=== PATIENT | male | born 1980 | race American Indian/Alaskan Native ===

== ENCOUNTER 2019-03-19 06:20 | Emergency (ER) | payer SELFPAY ==
--- NOTE | 2019-03-19 10:36 | Emergency Department Report ---
Abscess Boil HPI - HPI Chief Complaint: Skin/Abscess/Foreign Body Stated Complaint: BOIL RIGHT SIDE OF NECK Time Seen by Provider: 03/19/19 09:38 Duration: 2 Days Location: Head Severity: Moderate History: Yes Pain, Yes Previous History, No Fever, No Purulent Drainage, No Numbness, No Foreign Body, No Insect Bite HPI: 39-year-old male male presents to ED complaining of swelling and redness to the back of his lower head. He denies fevers/chills/nausea vomiting. Patient states he's had this before and had to have it drained. Home Medications: Previous Rx's Medication Instructions Recorded Last Taken Type HYDROcodone/APAP 5-325 [[place] 1 each PO Q6HR PRN #20 tablet 11/15/13 Unknown Rx 5/325] Clindamycin [Clindamycin CAP] 300 mg PO TID #15 cap 03/19/19 Unknown Rx Ibuprofen [Motrin] 800 mg PO Q8HR #20 tablet 03/19/19 Unknown Rx Sulfamethoxazole/Trimethoprim 1 each PO BID #14 tablet 03/19/19 Unknown Rx [Bactrim DS TAB] Allergies/Adverse Reactions: Allergies Allergy/AdvReac Type Severity Reaction Status Date / Time Penicillins Allergy Unknown Verified 11/15/13 18:28 ED Review of Systems ROS: Stated complaint: BOIL RIGHT SIDE OF NECK Other details as noted in HPI Comment: All other systems reviewed and negative ED Past Medical Hx - Past Medical History Previous Medical History?: No - Surgical History Past Surgical History?: No - Social History Smoking Status: Current Every Day Smoker Substance Use Type: Marijuana - Medications Home Medications: Home Medications Medication Instructions Recorded Confirmed Last Taken Type HYDROcodone/APAP 5-325 [[place] 1 each PO Q6HR PRN #20 tablet 11/15/13 Unknown Rx 5/325] Clindamycin [Clindamycin CAP] 300 mg PO TID #15 cap 03/19/19 Unknown Rx Ibuprofen [Motrin] 800 mg PO Q8HR #20 tablet 03/19/19 Unknown Rx Sulfamethoxazole/Trimethoprim 1 each PO BID #14 tablet 03/19/19 Unknown Rx [Bactrim DS TAB] ED Abscess Boil Physical Exam - Exam General: Vital signs noted. No distress. Alert and acting appropriately. Size: >5 cm Exam: Yes Tenderness, Yes Fluctuance, Yes Surrounding Cellulites/Erythema, Yes Normal Neurologic Exam, Yes Normal Circulation, No Lymphangitis, No Crepitation, No Heart Murmur Exam: Erythematous, cellulitic swelling to the back of the neck I & D Note - I & D Note I & D Note: Patient positioned appropriately, 5cc lidocaine without epinephrine was used as a local anesthetic. #11 blade scalpal used for single incision. Additional local anesthetic injected into surrounding viable tissue prior to blunt dissection of loculated adhesions. Copius drainage of pus (culture obtained). Wound packed with iodoform gauze. Procedure tolerated without complications. Wound dressed with sterile 4x4 guaze and paper tape. Pt tolerated procedure well. ED Course Vital Signs 03/19/19 06:25 Temperature 98.6 F Pulse Rate 92 H Respiratory 18 Rate Blood Pressure 159/104 O2 Sat by Pulse 97 Oximetry Critical care attestation.: If time is entered above; I have spent that time in minutes in the direct care of this critically ill patient, excluding procedure time. ED Medical Decision Making - Medical Decision Making 39-year-old male presents with abscess of the back of his neck Pt tolerated procedure without any problems, see I&D. Discussed the patient to follow-up with primary care physician for wound check in 3-5 days. Vital signs are normal patient is in no acute distress Discussed the patient to have packing removed in 3 days. Patient tolerated procedure well. Patient sent home with antibiotics and pain medication. ED Disposition Clinical Impression: Abscess Disposition: DC-01 TO HOME OR SELFCARE Is pt being admited?: No Does the pt Need Aspirin: No Condition: Stable Instructions: Abscess Incision and Drainage (ED), Abscess (ED) Additional Instructions: Make sure to follow up with the primary care physician as discussed. Take all your medications as you've been prescribed. If you have any worsening symptoms or develop new symptoms please return to ED immediately. Prescriptions: Sulfamethoxazole/Trimethoprim [Bactrim DS TAB] 1 each PO BID #14 tablet Clindamycin [Clindamycin CAP] 300 mg PO TID #15 cap Ibuprofen [Motrin] 800 mg PO Q8HR #20 tablet Referrals: PRIMARY CARE, [Primary Care Provider] - 3-5 Days [facility] [Outside] - 3-5 Days [facility] [Outside] - 3-5 Days Forms: Work/School Release Form(ED) Time of Disposition: 10:48
[2019-03-19] MEDS ORDERED: LIDOCAINE (1%) 10 MG/1 ML VIAL 20 ML MDV INFILTRATI NR (10:45)
[2019-03-19] MEDS ORDERED: LET TOPICAL (LIDOCAINE/EPINEPHRINE/TETRACAINE) 3 ML TP ONE ×2 (11:01→11:04)
[2019-03-19] MEDS ORDERED: LIDOCAINE-MPF (1%) 10 MG/1 ML VIAL 5 ML INFILTRATI ONE (11:01)
[2019-03-19] MEDS ORDERED: LIDOCAINE-MPF (1%) 10 MG/1 ML VIAL 5 ML ONE (11:04)
[2019-03-19 12:19] VITALS: BP 143/92
== END 2019-03-19 12:17 | disposition home or self-care (01) ==
LOC: ED 06:20
DX: L02.11 Cutaneous abscess of neck (principal); F17.200 Nicotine dependence, unspecified, uncomplicated; F12.10 Cannabis abuse, uncomplicated; Z79.899 Other long term (current) drug therapy; Z88.0 Allergy status to penicillin
CPT/HCPCS: 99282

== ENCOUNTER 2020-01-02 03:58 | Emergency (ER) | payer SELFPAY | END 2020-01-02 04:45 | disposition left against medical advice (07) | LOC: ED 03:58 | DX: S61.218A Laceration without foreign body of other finger without damage to nail, initial encounter (principal); Z53.21 Procedure and treatment not carried out due to patient leaving prior to being seen by health care provider; X58.XXXA Exposure to other specified factors, initial encounter; Y93.89 Activity, other specified; Y92.89 Other specified places as the place of occurrence of the external cause; Y99.8 Other external cause status ==

== ENCOUNTER 2020-06-24 15:58 | Inpatient (IN) | payer OTHER, SELFPAY ==
[2020-06-24] MEDS ORDERED: SODIUM CHLORIDE 0.9% 1000 ML 1,000 ML IV ONE ×2 (16:51→18:53)
--- NOTE | 2020-06-24 17:06 | Emergency Department Report ---
ED General Adult HPI - General Chief complaint: Nausea/Vomiting/Diarrhea Stated complaint: FEELING FAINT Time Seen by Provider: 06/24/20 16:41 Source: patient, EMS Mode of arrival: Stretcher Limitations: No Limitations - History of Present Illness Initial comments: Patient presents to the emergency department with a chief complaint not feeling well for the last 2 days. Patient states he was at work and was having hot and cold spells and felt like he was in a pass out. Patient also complains of sinus congestion has been present for the last 2 weeks. Patient states he has a history of plaque psoriasis and is currently on a medication that he injects every 2 weeks because Cimzia. Patient denies any chest pain, shortness breath, headache -: Sudden Severity scale (0 -10): 7 Consistency: constant Improves with: none Worsens with: none Associated Symptoms: denies other symptoms Treatments Prior to Arrival: none - Related Data Previous Rx's Medication Instructions Recorded Last Taken Type HYDROcodone/APAP 5-325 [[place] 1 each PO Q6HR PRN #20 tablet 11/15/13 Unknown Rx 5/325] Clindamycin [Clindamycin CAP] 300 mg PO TID #15 cap 03/19/19 Unknown Rx Ibuprofen [Motrin] 800 mg PO Q8HR #20 tablet 03/19/19 Unknown Rx Sulfamethoxazole/Trimethoprim 1 each PO BID #14 tablet 03/19/19 Unknown Rx [Bactrim DS TAB] Allergies Allergy/AdvReac Type Severity Reaction Status Date / Time Penicillins Allergy Unknown Verified 11/15/13 18:28 ED Review of Systems ROS: Stated complaint: FEELING FAINT Other details as noted in HPI Comment: All other systems reviewed and negative Constitutional: denies: chills, fever Eyes: denies: eye pain, eye discharge, vision change ENT: denies: ear pain, throat pain Respiratory: denies: cough, shortness of breath, wheezing Cardiovascular: denies: chest pain, palpitations Endocrine: no symptoms reported Gastrointestinal: denies: abdominal pain, nausea, diarrhea Genitourinary: denies: urgency, dysuria Musculoskeletal: denies: back pain, joint swelling, arthralgia Skin: denies: rash, lesions Neurological: weakness. denies: headache, paresthesias Psychiatric: denies: anxiety, depression Hematological/Lymphatic: denies: easy bleeding, easy bruising ED Past Medical Hx - Past Medical History Hx Diabetes: Yes - Surgical History Past Surgical History?: No - Social History Smoking Status: Current Every Day Smoker - Medications Home Medications: Home Medications Medication Instructions Recorded Confirmed Last Taken Type HYDROcodone/APAP 5-325 [[place] 1 each PO Q6HR PRN #20 tablet 11/15/13 Unknown Rx 5/325] Clindamycin [Clindamycin CAP] 300 mg PO TID #15 cap 03/19/19 Unknown Rx Ibuprofen [Motrin] 800 mg PO Q8HR #20 tablet 03/19/19 Unknown Rx Sulfamethoxazole/Trimethoprim 1 each PO BID #14 tablet 03/19/19 Unknown Rx [Bactrim DS TAB] ED Physical Exam - General Limitations: No Limitations General appearance: alert, in no apparent distress, other (Ill-appearing but not in acute distress. Not toxic) - Head Head exam: Present: atraumatic, normocephalic - Eye Eye exam: Present: normal appearance - ENT ENT exam: Present: mucous membranes moist - Neck Neck exam: Present: normal inspection - Respiratory Respiratory exam: Present: normal lung sounds bilaterally. Absent: respiratory distress - Cardiovascular Cardiovascular Exam: Present: regular rate, normal rhythm. Absent: systolic murmur, diastolic murmur, rubs, gallop - GI/Abdominal GI/Abdominal exam: Present: soft, normal bowel sounds. Absent: distended, tenderness - Rectal Rectal exam: Present: deferred - Extremities Exam Extremities exam: Present: normal inspection - Back Exam Back exam: Present: normal inspection - Neurological Exam Neurological exam: Present: alert, oriented X3, CN II-XII intact. Absent: motor sensory deficit - Psychiatric Psychiatric exam: Present: normal affect, normal mood - Skin Skin exam: Present: warm, dry, intact, normal color. Absent: rash ED Course Vital Signs 06/24/20 16:55 Temperature 99.3 F Pulse Rate 86 Respiratory 18 Rate Blood Pressure 160/88 [Left] O2 Sat by Pulse 96 Oximetry ED Medical Decision Making - Lab Data Result diagrams: 06/24/20 17:02 06/24/20 17:02 Lab Results 06/24/20 06/24/20 06/24/20 Range/Units 17:02 17:02 17:02 WBC 24.6 H (4.5-11.0) K/mm3 RBC 5.36 H (3.65-5.03) M/mm3 Hgb 17.4 H (11.8-15.2) gm/dl Hct 52.3 H (35.5-45.6) % MCV 98 H (84-94) fl MCH 32 (28-32) pg MCHC 33 (32-34) % RDW 13.4 (13.2-15.2) % Plt Count 245 (140-440) K/mm3 Add Manual Diff Complete Total Counted 100 Seg Neutrophils % House Superintendent Lymphocytes % (Manual) 4.0 L (13.4-35.0) % Nucleated RBC % Not Reportable Seg Neutrophils # Man 23.6 H (1.8-7.7) K/mm3 Band Neutrophils # 0.0 K/mm3 Lymphocytes # (Manual) 1.0 L (1.2-5.4) K/mm3 Abs React Lymphs (Man) 0.0 K/mm3 Monocytes # (Manual) 0.0 (0.0-0.8) K/mm3 Eosinophils # (Manual) 0.0 (0.0-0.4) K/mm3 Basophils # (Manual) 0.0 (0.0-0.1) K/mm3 Metamyelocytes # 0.0 K/mm3 Myelocytes # 0.0 K/mm3 Promyelocytes # 0.0 K/mm3 Blast Cells # 0.0 K/mm3 WBC Morphology Not Reportable Hypersegmented Neuts Not Reportable Hyposegmented Neuts Not Reportable Hypogranular Neuts Not Reportable Smudge Cells Not Reportable Toxic Granulation Not Reportable Toxic Vacuolation Not Reportable Dohle Bodies Not Reportable Pelger-Huet Anomaly Not Reportable Mika Rods Not Reportable Platelet Estimate Not Reportable Clumped Platelets Not Reportable Plt Clumps, EDTA Not Reportable Large Platelets Not Reportable Giant Platelets Not Reportable Platelet Satelliting Not Reportable Plt Morphology Comment Not Reportable RBC Morphology Normal Dimorphic RBCs Not Reportable Polychromasia Not Reportable Hypochromasia Not Reportable Poikilocytosis Not Reportable Anisocytosis Not Reportable Microcytosis Not Reportable Macrocytosis Not Reportable Spherocytes Not Reportable Pappenheimer Bodies Not Reportable Sickle Cells Not Reportable Target Cells Not Reportable Tear Drop Cells Not Reportable Ovalocytes Not Reportable Helmet Cells Not Reportable [place] Bodies Not Reportable [place] Rings Not Reportable [place] Cells Not Reportable Bite Cells Not Reportable Crenated Cell Not Reportable Elliptocytes Not Reportable Acanthocytes (Spur) Not Reportable Rouleaux Not Reportable Hemoglobin C Crystals Not Reportable Schistocytes Not Reportable Malaria parasites Not Reportable Juan A Bodies Not Reportable Hem Pathologist Commnt No PT 13.5 (12.2-14.9) Sec. INR 1.04 (0.87-1.13) APTT 23.0 L (24.2-36.6) Sec. Sodium 131 L (137-145) mmol/L Potassium 4.4 (3.6-5.0) mmol/L Chloride 97.2 L (98-107) mmol/L Carbon Dioxide 22 (22-30) mmol/L Anion Gap 16 mmol/L BUN 20 (9-20) mg/dL Creatinine 0.9 (0.8-1.3) mg/dL Estimated GFR > 60 ml/min BUN/Creatinine Ratio 22 % Glucose 366 H (75-100) mg/dL Lactic Acid (0.7-2.0) mmol/L Calcium 9.2 (8.4-10.2) mg/dL Magnesium 1.50 L (1.7-2.3) mg/dL Total Bilirubin 0.50 (0.1-1.2) mg/dL AST 13 (5-40) units/L ALT 23 (7-56) units/L Alkaline Phosphatase 110 (35-129) units/L Total Protein 7.5 (6.3-8.2) g/dL Albumin 3.6 L (3.9-5) g/dL Albumin/Globulin Ratio 0.9 % Urine Color (Yellow) Urine Turbidity (Clear) Urine pH (5.0-7.0) Ur Specific [place] (1.003-1.030) Urine Protein (Negative) mg/dL Urine Glucose (UA) (Negative) mg/dL Urine Ketones (Negative) mg/dL Urine Blood (Negative) Urine Nitrite (Negative) Urine Bilirubin (Negative) Urine Urobilinogen (<2.0) mg/dL Ur Leukocyte Esterase (Negative) Urine WBC (Auto) (0.0-6.0) /HPF Urine RBC (Auto) (0.0-6.0) /HPF Urine Mucus /HPF 06/24/20 06/24/20 Range/Units 17:02 Unknown WBC (4.5-11.0) K/mm3 RBC (3.65-5.03) M/mm3 Hgb (11.8-15.2) gm/dl Hct (35.5-45.6) % MCV (84-94) fl MCH (28-32) pg MCHC (32-34) % RDW (13.2-15.2) % Plt Count (140-440) K/mm3 Add Manual Diff Total Counted Seg Neutrophils % Lymphocytes % (Manual) (13.4-35.0) % Nucleated RBC % Seg Neutrophils # Man (1.8-7.7) K/mm3 Band Neutrophils # K/mm3 Lymphocytes # (Manual) (1.2-5.4) K/mm3 Abs React Lymphs (Man) K/mm3 Monocytes # (Manual) (0.0-0.8) K/mm3 Eosinophils # (Manual) (0.0-0.4) K/mm3 Basophils # (Manual) (0.0-0.1) K/mm3 Metamyelocytes # K/mm3 Myelocytes # K/mm3 Promyelocytes # K/mm3 Blast Cells # K/mm3 WBC Morphology Hypersegmented Neuts Hyposegmented Neuts Hypogranular Neuts Smudge Cells Toxic Granulation Toxic Vacuolation Dohle Bodies Pelger-Huet Anomaly Mika Rods Platelet Estimate Clumped Platelets Plt Clumps, EDTA Large Platelets Giant Platelets Platelet Satelliting Plt Morphology Comment RBC Morphology Dimorphic RBCs Polychromasia Hypochromasia Poikilocytosis Anisocytosis Microcytosis Macrocytosis Spherocytes Pappenheimer Bodies Sickle Cells Target Cells Tear Drop Cells Ovalocytes Helmet Cells [place] Bodies [place] Rings Augie Cells Bite Cells Crenated Cell Elliptocytes Acanthocytes (Spur) Rouleaux Hemoglobin C Crystals Schistocytes Malaria parasites Juan A Bodies Hem Pathologist Commnt PT (12.2-14.9) Sec. INR (0.87-1.13) APTT (24.2-36.6) Sec. Sodium (137-145) mmol/L Potassium (3.6-5.0) mmol/L Chloride (98-107) mmol/L Carbon Dioxide (22-30) mmol/L Anion Gap mmol/L BUN (9-20) mg/dL Creatinine (0.8-1.3) mg/dL Estimated GFR ml/min BUN/Creatinine Ratio % Glucose (75-100) mg/dL Lactic Acid 2.50 H* (0.7-2.0) mmol/L Calcium (8.4-10.2) mg/dL Magnesium (1.7-2.3) mg/dL Total Bilirubin (0.1-1.2) mg/dL AST (5-40) units/L ALT (7-56) units/L Alkaline Phosphatase (35-129) units/L Total Protein (6.3-8.2) g/dL Albumin (3.9-5) g/dL Albumin/Globulin Ratio % Urine Color Yellow (Yellow) Urine Turbidity Clear (Clear) Urine pH 6.0 (5.0-7.0) Ur Specific [place] 1.035 H (1.003-1.030) Urine Protein <15 mg/dl (Negative) mg/dL Urine Glucose (UA) >=500 (Negative) mg/dL Urine Ketones Tr (Negative) mg/dL Urine Blood Neg (Negative) Urine Nitrite Neg (Negative) Urine Bilirubin Neg (Negative) Urine Urobilinogen < 2.0 (<2.0) mg/dL Ur Leukocyte Esterase Neg (Negative) Urine WBC (Auto) < 1.0 (0.0-6.0) /HPF Urine RBC (Auto) 3.0 (0.0-6.0) /HPF Urine Mucus Few /HPF - Medical Decision Making On repeat evaluation of the patient at approximately 7:20 PM informs myself and Dr. Gallego that he recently had steroid shots locally to multiple parts of his body as well as development of abscesses to his buttocks. Patient also states that he has had abscesses under his left arm as well. On physical exam the patient has multiple fluctuant abscesses to the buttocks and axilla left side. CT of the abdomen pelvis will be obtained and will be followed by the admitting team IV fluids and IV antibiotics given Critical care attestation.: If time is entered above; I have spent that time in minutes in the direct care of this critically ill patient, excluding procedure time. ED Disposition Clinical Impression: Leukocytosis, Cellulitis Disposition: OP ADMIT IP TO THIS HOSP Is pt being admited?: Yes Does the pt Need Aspirin: No Condition: Fair Referrals: ZANE EMERSON MD [Primary Care Provider] - 3-5 Days
[2020-06-24 17:16] LABS: Hematocrit 52.3 % (35.5-45.6); Hemoglobin 17.4 gm/dl (11.8-15.2); Mean Corpuscular HGB Conc 33 % (32-34); Mean Corpuscular Volume 98 fl (84-94); Platelet Count 245 K/mm3 (140-440); Red Blood Count 5.36 M/mm3 (3.65-5.03); Red Cell Distribution Width 13.4 % (13.2-15.2)
--- NOTE | 2020-06-24 17:17 | XRay Report ---
XR chest 1V ap INDICATION / CLINICAL INFORMATION: weakness. COMPARISON: None available. FINDINGS: SUPPORT DEVICES: None. HEART /PULMONARY VASCULATURE: No significant abnormality. LUNGS / PLEURA: No significant pulmonary or pleural abnormality. No pneumothorax. ADDITIONAL FINDINGS: No significant additional findings. IMPRESSION: 1. No acute findings. Signer Name: Shaquille Naranjo MD Signed: 06/24/2020 5:12 PM Workstation Name: [id number]
[2020-06-24 17:31] LABS: Bilirubin,Urine NEG (Negative); Blood,Urine NEG (Negative); Color,Urine Yellow (Yellow); Mucus,Urine FEW /HPF; Protein,Urine <15 mg/dL mg/dL (Negative); Urobilinogen,Urine < 2.0 mg/dL (<2.0); WBC,Urine < 1.0 /HPF (0.0-6.0)
[2020-06-24 17:40] LABS: Alanine Aminotransferase 23 units/L (7-56); Albumin 3.6 g/dL (3.9-5); BUN/Creatinine Ratio 22; Blood Urea Nitrogen 20 mg/dL (9-20); Calcium 9.2 mg/dL (8.4-10.2); Hemolysis Index 14; INR 1.04 (0.87-1.13)
[2020-06-24 18:26] LABS: RBC Morphology Normal; Total Cells Counted 100
[2020-06-24] MEDS ORDERED: ONDANSETRON 4 MG/2 ML INJ IV PRN (19:37)
[2020-06-24] MEDS ORDERED: ACETAMINOPHEN 325 MG TAB PO PRN ×2 (19:37→19:40)
--- NOTE | 2020-06-24 19:43 | History and Physical Report ---
History of Present Illness Chief complaint: I feel terrible and I feel like I would pass out History of present illness: 40 YO Male with DM, Nicotine Dependence, Plaque Psoriasis currently taking Cimzia injections presents to ED for evaluations. Pt reports "I felt like I was going to faint". Pt states that he has experienced weakness, dizziness, and felt like he was going to pass out. Patient acknowledges subjective fever, and decreased oral intake. EMS was notified and upon arrival the patient was found to be in distress and subsequently transported to [facility] for further care and evaluation of the aforementioned symptoms. The patient was seen and evaluated in the emergency department. All lab and imaging studies reviewed. Patient found to have sepsis suspected secondary to buttock cellulitis with probable abscess, left axillary cellulitis, acidosis. Patient admitted to medical floor and initiated on sepsis protocol. CT scan abdomen and pelvis is ordered and is pending at time of admission. Patient denies chills, chest pain, palpitations, productive cough, recent ill contacts, or known exposure to COVID-19. No prior admission for review. All medication listed at time of admission has been rec onciled. Past History Past Medical History: diabetes, other (See HPI) Past Surgical History: No surgical history, Other (Reviewed) Social history: single, smoking. denies: alcohol abuse, prescription drug abuse Family history: diabetes, hypertension Medications and Allergies Allergies Allergy/AdvReac Type Severity Reaction Status Date / Time Penicillins Allergy Unknown Verified 11/15/13 18:28 Home Medications Medication Instructions Recorded Confirmed Last Taken Type HYDROcodone/APAP 5-325 [[place] 1 each PO Q6HR PRN #20 tablet 11/15/13 Unknown Rx 5/325] Clindamycin [Clindamycin CAP] 300 mg PO TID #15 cap 03/19/19 Unknown Rx Ibuprofen [Motrin] 800 mg PO Q8HR #20 tablet 03/19/19 Unknown Rx Sulfamethoxazole/Trimethoprim 1 each PO BID #14 tablet 03/19/19 Unknown Rx [Bactrim DS TAB] Active Meds: Active Medications Acetaminophen (Acetaminophen 325 Mg Tab) 650 mg PO Q4H PRN PRN Reason: Pain MILD(1-3)/Fever >100.5/YI Acetaminophen (Acetaminophen 325 Mg Tab) 650 mg PO Q6H PRN PRN Reason: Pain, Mild (1-3) Hydrocodone Bitart/Acetaminophen (Hydrocodone/Acetaminophen 5-325 Mg Tab) 1 each PO Q6HR PRN PRN Reason: PAIN Hydromorphone HCl (Hydromorphone 1 Mg/1 Ml Inj) 0.25 mg IV Q4H PRN PRN Reason: Pain, Moderate (4-6) Sodium Chloride (Nacl 0.9% 1000 Ml) 1,000 mls @ 999 mls/hr IV BOLUS ONE Stop: 06/24/20 19:53 Last Admin: 06/24/20 19:03 Dose: 999 mls/hr Documented by: Vancomycin HCl 2,000 mg/ (Sodium Chloride) 540 mls @ 333 mls/hr IV ONCE ONE; Protocol Stop: 06/24/20 21:17 Ondansetron HCl (Ondansetron 4 Mg/2 Ml Inj) 4 mg IV Q8H PRN PRN Reason: Nausea And Vomiting Sodium Chloride (Sodium Chloride 0.9% 10 Ml Flush Syringe) 10 ml IV BID RAY Sodium Chloride (Sodium Chloride 0.9% 10 Ml Flush Syringe) 10 ml IV PRN PRN PRN Reason: LINE FLUSH Sodium Chloride (Sodium Chloride 0.9% 1000 Ml Iv Soln) 2,960 ml 30 ml/kg (2960 ml) IV ONCE ONE Stop: 06/24/20 19:41 Review of Systems Constitutional: fever, weakness, malaise, no weight loss, no weight gain, no chills, no sweats Ears, nose, mouth and throat: no ear pain, no ear discharge, no tinnitis, no na janessa discharge Cardiovascular: no chest pain, no orthopnea, no rapid/irregular heart beat, no edema, no syncope Respiratory: no cough, no excessive sputum, no hemoptysis, no shortness of breath Gastrointestinal: no abdominal pain, no nausea, no vomiting, no constipation, no change in bowel habits, no hematemesis Genitourinary Male: no hematuria, no flank pain, no discharge, no urinary frequency, no urinary hesitancy Rectal: no pain, no incontinence, no bleeding Musculoskeletal: no shooting arm pain, no low back pain, no shooting leg pain, no leg numbness/tingling Integumentary: rash, boils, lesions, no pruritis, no sores, no wounds, no jaundice Neurological: no head injury, no transient paralysis, no numbness Psychiatric: no anxiety, no change in sleep habits, no sleep disturbances, no hypersomnia Endocrine: no cold intolerance, no heat intolerance, no excessive thirst, no polydipsia, no polyuria Hematologic/Lymphatic: no easy bruising, no easy bleeding Allergic/Immunologic: no urticaria, no allergic rhinitis, no wheezing Exam - Constitutional Vitals: Temp Pulse Resp BP Pulse Ox 99.3 F 86 18 160/88 96 06/24/20 16:55 06/24/20 16:55 06/24/20 16:55 06/24/20 16:55 06/24/20 16:55 General appearance: Present: mild distress - EENT Eyes: Present: PERRL ENT: hearing intact, clear oral mucosa - Neck Neck: Present: supple, normal ROM - Respiratory Respiratory effort: normal Respiratory: bilateral: CTA - Cardiovascular Heart Sounds: Present: S1 & S2. Absent: rub, click - Extremities Extremities: pulses symmetrical, No edema, abnormal (Left axillary purulent drainage, erythema, edema) Peripheral Pulses: abnormal (Capillary refill greater than 3.5 seconds) - Abdominal General gastrointestinal: Present: soft, non-tender, non-distended, normal bowel sounds Male genitourinary: Present: normal - Rectal Rectal Exam: other (Right gluteal fluctuance, erythema, edema) - Integumentary Integumentary: Present: clear, warm, dry - Musculoskeletal Musculoskeletal: gait normal, strength equal bilaterally - Psychiatric Psychiatric: appropriate mood/affect, intact judgment & insight - Neurologic Neurologic: CNII-XII intact, moves all extremities Results - Labs CBC & Chem 7: 06/24/20 17:02 06/24/20 17:02 Labs: Abnormal lab results 06/24/20 06/24/20 06/24/20 Range/Units 17:02 17:02 17:02 WBC 24.6 H (4.5-11.0) K/mm3 RBC 5.36 H (3.65-5.03) M/mm3 Hgb 17.4 H (11.8-15.2) gm/dl Hct 52.3 H (35.5-45.6) % MCV 98 H (84-94) fl Lymphocytes % (Manual) 4.0 L (13.4-35.0) % Seg Neutrophils # Man 23.6 H (1.8-7.7) K/mm3 Lymphocytes # (Manual) 1.0 L (1.2-5.4) K/mm3 APTT 23.0 L (24.2-36.6) Sec. Sodium 131 L (137-145) mmol/L Chloride 97.2 L (98-107) mmol/L Glucose 366 H (75-100) mg/dL Lactic Acid (0.7-2.0) mmol/L Magnesium 1.50 L (1.7-2.3) mg/dL Albumin 3.6 L (3.9-5) g/dL Ur Specific [place] (1.003-1.030) 06/24/20 06/24/20 Range/Units 17:02 Unknown WBC (4.5-11.0) K/mm3 RBC (3.65-5.03) M/mm3 Hgb (11.8-15.2) gm/dl Hct (35.5-45.6) % MCV (84-94) fl Lymphocytes % (Manual) (13.4-35.0) % Seg Neutrophils # Man (1.8-7.7) K/mm3 Lymphocytes # (Manual) (1.2-5.4) K/mm3 APTT (24.2-36.6) Sec. Sodium (137-145) mmol/L Chloride (98-107) mmol/L Glucose (75-100) mg/dL Lactic Acid 2.50 H* (0.7-2.0) mmol/L Magnesium (1.7-2.3) mg/dL Albumin (3.9-5) g/dL Ur Specific [place] 1.035 H (1.003-1.030) Assessment and Plan - Patient Problems (1) Sepsis Current Visit: Yes Status: Acute Plan to address problem: Sepsis protocol: IV antibiotic therapy, IV fluid resuscitation therapy, CBC, CMP, serial lactic acid level, maintain mean arterial pressure greater than or equal to 65, monitor fluid balance. (2) Diabetes Current Visit: Yes Status: Acute Plan to address problem: Sliding-scale insulin therapy, Accu-Chek, hypoglycemia protocol, consistent carbohydrate diet. (3) Plaque psoriasis Current Visit: Yes Status: Acute Plan to address problem: Supportive care, continue medical management. Outpatient dermatology follow-up. (4) Cellulitis, gluteal, right Current Visit: Yes Status: Acute Plan to address problem: CT scan abdomen and pelvis is ordered and pending at time of admission, IV antibiotic therapy, supportive care. If patient has abscess will consult surgery in a.m. for further management. (5) Cellulitis Current Visit: Yes Status: Acute Qualifiers: Laterality: left Plan to address problem: IV antibiotic therapy, supportive care, continue medical management. CBC, repeat CBC in a.m. (6) DVT prophylaxis Current Visit: Yes Status: Acute Plan to address problem: SCD to bilateral lower extremities while in bed, patient is ambulatory.
[2020-06-24] MEDS ORDERED: VANCOMYCIN PHARMACY TO DOSE IV SCH (20:00)
[2020-06-24] MEDS ORDERED: VANCOMYCIN 2,000 MG in SODIUM CHLORIDE 0.9% 500 ML 500 ML IV ONE (20:40)
[2020-06-24] MEDS ORDERED: SODIUM CHLORIDE 0.9% 1000 ML IV SOLN IV ONE (20:40)
--- NOTE | 2020-06-24 21:00 | Cat Scan Report ---
CT ABDOMEN AND PELVIS WITH CONTRAST INDICATION / CLINICAL INFORMATION: Perineal abscess. TECHNIQUE: Axial CT images were obtained through the abdomen and pelvis after IV contrast. All CT sc ans at this location are performed using CT dose reduction for ALARA by means of automated exposure c ontrol. COMPARISON: None available. FINDINGS: LOWER CHEST: No significant abnormality LIVER: No significant abnormality GALLBLADDER/BILIARY TREE: No significant abnormality PANCREAS: No significant abnormality SPLEEN: No significant abnormality ADRENALS: No significant abnormality KIDNEYS / URETER: No significant abnormality URINARY BLADDER: No significant abnormality REPRODUCTIVE ORGANS: No significant abnormality STOMACH / SMALL BOWEL: Stomach and small bowel are normal in caliber. No evidence of bowel inflammati on. COLON: The colon is unremarkable. The appendix is normal in caliber. LYMPH NODES: Shotty reactive lymph nodes in the inguinal region. Otherwise, no significant adenopathy of the abdomen or pelvis VASCULATURE: No significant abnormality. OTHER: Inflammatory stranding of the right gluteal cleft with 3.0 x 2.5 x 3.0 cm fluid and gas collec tion, consistent with abscess. There is no discrete involvement of the anus. SKELETAL SYSTEM: No acute osseous findings. IMPRESSION: Cellulitis in the right gluteal cleft with 3 cm abscess. No discrete involvement of the anus. Signer Name: Shaquille Naranjo MD Signed: 06/24/2020 8:55 PM Workstation Name: [id number]
[2020-06-24] MEDS: HYDROcodone/ACETAMINOPHEN 5-325 MG TAB PO PRN (22:41)
[2020-06-25] MEDS: HYDROmorphone 1 MG/1 ML INJ IV PRN ×2 (00:14→09:44)
[2020-06-25] MEDS: HYDROcodone/ACETAMINOPHEN 5-325 MG TAB PO PRN ×2 (04:55→18:20)
[2020-06-25] MEDS ORDERED: VANCOMYCIN 1,250 MG in SODIUM CHLORIDE 0.9% 250ML 250 ML IV SCH (06:00)
[2020-06-25 06:54] LABS: Hematocrit 45.5 % (35.5-45.6); Hemoglobin 15.4 gm/dl (11.8-15.2); Mean Corpuscular HGB Conc 34 % (32-34); Mean Corpuscular Volume 99 fl (84-94); Platelet Count 215 K/mm3 (140-440); Red Blood Count 4.62 M/mm3 (3.65-5.03); Red Cell Distribution Width 13.1 % (13.2-15.2)
[2020-06-25 07:00] LABS: Basophils # (Auto) 0.2 K/mm3 (0.0-0.1); Basophils % (Auto) 0.6 % (0.0-1.8); Eosinophils # (Auto) 0.3 K/mm3 (0.0-0.4); Eosinophils % (Auto) 1.2 % (0.0-4.3); Lymphocytes % (Auto) 7.2 % (13.4-35.0); Monocytes # (Auto) 1.6 K/mm3 (0.0-0.8)
[2020-06-25 07:12] LABS: Alanine Aminotransferase 18 units/L (7-56); Albumin 2.9 g/dL (3.9-5); BUN/Creatinine Ratio 12; Blood Urea Nitrogen 11 mg/dL (9-20); Calcium 8.3 mg/dL (8.4-10.2); Hemolysis Index 4
--- NOTE | 2020-06-25 10:24 | Progress Note ---
Assessment and Plan Assessment and plan: 40 YO Male with DM, Nicotine Dependence, Plaque Psoriasis currently taking Cimzia injections presents to ED for evaluations. Pt reports "I felt like I was going to faint". Pt states that he has experienced weakness, dizziness, and felt like he was going to pass out. Patient acknowledges subjective fever, and decreased oral intake. EMS was notified and upon arrival the patient was found to be in distress and subsequently transported to [facility] for further care and evaluation of the aforementioned symptoms. The patient was seen and evaluated in the emergency department. All lab and imaging studies reviewed. Patient found to have sepsis suspected secondary to buttock cellulitis with probable abscess, left axillary cellulitis, acidosis. Patient admitted to medical floor and initiated on sepsis protocol. CT scan abdomen and pelvis is ordered and is pending at time of admission. Patient denies chills, chest pain, palpitations, productive cough, recent ill contacts, or known exposure to COVID-19. No prior admission for review. All medication listed at time of admission has been reconciled. CT abdomen and pelvis reviewed shows cellulitis with abscess of 3 cm to the right gluteal cleft without involvement of the anus. Sepsis secondary to gluteal abscess Diabetes mellitus Plaque psoriasis Gluteal cellulitis right Hyponatremia now resolved Worsening leukocytosis in the setting of sepsis Plan Continue supportive care with sepsis protocol Continue IV fluids Discussed with infectious disease and surgery to go to see the patient for possible I&D and adjustment of medications. Patient takes Metformin outpatient for his diabetes 500 mg twice daily will hold that and start the patient on insulin therapy at this point for better control in the setting of an infectious process. DVT and GI prophylaxis Plan of care discussed with the patient in detail History Interval history: Patient seen and examined this morning resting comfortably still with some pain in the gluteal area no other complaints. Hospitalist Physical - Physical exam Narrative exam: VITAL SIGNS: Reviewed. GENERAL: The patient appears normally developed, Vital signs as documented. HEAD: No signs of head trauma. EYES: Pupils are equal. Extraocular motions intact. EARS: Hearing grossly intact. MOUTH: Oropharynx is normal. NECK: No adenopathy, no JVD. CHEST: Chest with clear breath sounds bilaterally. No wheezes, rales, or rhonchi. CARDIAC: Regular rate and rhythm. S1 and S2, without murmurs, gallops, or rubs. VASCULAR: No Edema. Peripheral pulses normal and equal in all extremities. ABDOMEN: Soft, non tender and non distended. No rebound or guarding, and no masses palpated. Bowel Sounds normal. MUSCULOSKELETAL: Good range of motion of all major joints. Extremities without clubbing, cyanosis or edema. NEUROLOGIC EXAM: Alert and oriented x 3 No focal sensory or strength deficits. Speech normal. Follows commands. PSYCHIATRIC: Mood normal. SKIN: . Gluteal indentation noted with possible abscess. detail exam as documented in skin assessment - Constitutional Vitals: Temp Pulse Resp BP Pulse Ox 99.0 F 84 18 134/86 95 06/25/20 07:37 06/25/20 07:37 06/25/20 07:37 06/25/20 07:37 06/25/20 07:37 General appearance: Present: mild distress Results - Labs CBC & Chem 7: 06/25/20 05:58 06/25/20 05:58 Labs: Laboratory Last Values WBC 27.2 K/mm3 (4.5-11.0) H 06/25/20 05:58 RBC 4.62 M/mm3 (3.65-5.03) 06/25/20 05:58 Hgb 15.4 gm/dl (11.8-15.2) H 06/25/20 05:58 Hct 45.5 % (35.5-45.6) D 06/25/20 05:58 MCV 99 fl (84-94) H 06/25/20 05:58 MCH 33 pg (28-32) H 06/25/20 05:58 MCHC 34 % (32-34) 06/25/20 05:58 RDW 13.1 % (13.2-15.2) L 06/25/20 05:58 Plt Count 215 K/mm3 (140-440) 06/25/20 05:58 Lymph % (Auto) 7.2 % (13.4-35.0) L 06/25/20 05:58 [place] % (Auto) 6.0 % (0.0-7.3) 06/25/20 05:58 Eos % (Auto) 1.2 % (0.0-4.3) 06/25/20 05:58 Baso % (Auto) 0.6 % (0.0-1.8) 06/25/20 05:58 Lymph # (Auto) 2.0 K/mm3 (1.2-5.4) 06/25/20 05:58 [place] # (Auto) 1.6 K/mm3 (0.0-0.8) H 06/25/20 05:58 Eos # (Auto) 0.3 K/mm3 (0.0-0.4) 06/25/20 05:58 Baso # (Auto) 0.2 K/mm3 (0.0-0.1) H 06/25/20 05:58 Add Manual Diff Complete 06/24/20 17:02 Total Counted 100 06/24/20 17:02 Seg Neutrophils % 85.0 % (40.0-70.0) H 06/25/20 05:58 Lymphocytes % (Manual) 4.0 % (13.4-35.0) L 06/24/20 17:02 Nucleated RBC % Not Reportable 06/24/20 17:02 Seg Neutrophils # 23.1 K/mm3 (1.8-7.7) H 06/25/20 05:58 Seg Neutrophils # Man 23.6 K/mm3 (1.8-7.7) H 06/24/20 17:02 Band Neutrophils # 0.0 K/mm3 06/24/20 17:02 Lymphocytes # (Manual) 1.0 K/mm3 (1.2-5.4) L 06/24/20 17:02 Abs React Lymphs (Man) 0.0 K/mm3 06/24/20 17:02 Monocytes # (Manual) 0.0 K/mm3 (0.0-0.8) 06/24/20 17:02 Eosinophils # (Manual) 0.0 K/mm3 (0.0-0.4) 06/24/20 17:02 Basophils # (Manual) 0.0 K/mm3 (0.0-0.1) 06/24/20 17:02 Metamyelocytes # 0.0 K/mm3 06/24/20 17:02 Myelocytes # 0.0 K/mm3 06/24/20 17:02 Promyelocytes # 0.0 K/mm3 06/24/20 17:02 Blast Cells # 0.0 K/mm3 06/24/20 17:02 WBC Morphology Not Reportable 06/24/20 17:02 Hypersegmented Neuts Not Reportable 06/24/20 17:02 Hyposegmented Neuts Not Reportable 06/24/20 17:02 Hypogranular Neuts Not Reportable 06/24/20 17:02 Smudge Cells Not Reportable 06/24/20 17:02 Toxic Granulation Not Reportable 06/24/20 17:02 Toxic Vacuolation Not Reportable 06/24/20 17:02 Dohle Bodies Not Reportable 06/24/20 17:02 Pelger-Huet Anomaly Not Reportable 06/24/20 17:02 Mika Rods Not Reportable 06/24/20 17:02 Platelet Estimate Not Reportable 06/24/20 17:02 Clumped Platelets Not Reportable 06/24/20 17:02 Plt Clumps, EDTA Not Reportable 06/24/20 17:02 Large Platelets Not Reportable 06/24/20 17:02 Giant Platelets Not Reportable 06/24/20 17:02 Platelet Satelliting Not Reportable 06/24/20 17:02 Plt Morphology Comment Not Reportable 06/24/20 17:02 RBC Morphology Normal 06/24/20 17:02 Dimorphic RBCs Not Reportable 06/24/20 17:02 Polychromasia Not Reportable 06/24/20 17:02 Hypochromasia Not Reportable 06/24/20 17:02 Poikilocytosis Not Reportable 06/24/20 17:02 Anisocytosis Not Reportable 06/24/20 17:02 Microcytosis Not Reportable 06/24/20 17:02 Macrocytosis Not Reportable 06/24/20 17:02 Spherocytes Not Reportable 06/24/20 17:02 Pappenheimer Bodies Not Reportable 06/24/20 17:02 Sickle Cells Not Reportable 06/24/20 17:02 Target Cells Not Reportable 06/24/20 17:02 Tear Drop Cells Not Reportable 06/24/20 17:02 Ovalocytes Not Reportable 06/24/20 17:02 Helmet Cells Not Reportable 06/24/20 17:02 [place] Bodies Not Reportable 06/24/20 17:02 [place]ale Rings Not Reportable 06/24/20 17:02 Augie Cells Not Reportable 06/24/20 17:02 Bite Cells Not Reportable 06/24/20 17:02 Crenated Cell Not Reportable 06/24/20 17:02 Elliptocytes Not Reportable 06/24/20 17:02 Acanthocytes (Spur) Not Reportable 06/24/20 17:02 Rouleaux Not Reportable 06/24/20 17:02 Hemoglobin C Crystals Not Reportable 06/24/20 17:02 Schistocytes Not Reportable 06/24/20 17:02 Malaria parasites Not Reportable 06/24/20 17:02 Juan A Bodies Not Reportable 06/24/20 17:02 Hem Pathologist Commnt No 06/24/20 17:02 PT 13.5 Sec. (12.2-14.9) 06/24/20 17:02 INR 1.04 (0.87-1.13) 06/24/20 17:02 APTT 23.0 Sec. (24.2-36.6) L 06/24/20 17:02 Sodium 135 mmol/L (137-145) L 06/25/20 05:58 Potassium 4.1 mmol/L (3.6-5.0) 06/25/20 05:58 Chloride 103.3 mmol/L (98-107) 06/25/20 05:58 Carbon Dioxide 23 mmol/L (22-30) 06/25/20 05:58 Anion Gap 13 mmol/L 06/25/20 05:58 BUN 11 mg/dL (9-20) 06/25/20 05:58 Creatinine 0.9 mg/dL (0.8-1.3) 06/25/20 05:58 Estimated GFR > 60 ml/min 06/25/20 05:58 BUN/Creatinine Ratio 12 % 06/25/20 05:58 Glucose 297 mg/dL (75-100) H 06/25/20 05:58 POC Glucose 265 mg/dL (70-105) H 06/25/20 07:52 Lactic Acid 1.20 mmol/L (0.7-2.0) 06/25/20 05:58 Calcium 8.3 mg/dL (8.4-10.2) L 06/25/20 05:58 Magnesium 1.50 mg/dL (1.7-2.3) L 06/24/20 17:02 Total Bilirubin 0.40 mg/dL (0.1-1.2) 06/25/20 05:58 AST 10 units/L (5-40) 06/25/20 05:58 ALT 18 units/L (7-56) 06/25/20 05:58 Alkaline Phosphatase 89 units/L (35-129) 06/25/20 05:58 Total Protein 6.1 g/dL (6.3-8.2) L 06/25/20 05:58 Albumin 2.9 g/dL (3.9-5) L 06/25/20 05:58 Albumin/Globulin Ratio 0.9 % 06/25/20 05:58 Urine Color Yellow (Yellow) 06/24/20 Unknown Urine Turbidity Clear (Clear) 06/24/20 Unknown Urine pH 6.0 (5.0-7.0) 06/24/20 Unknown Ur Specific [place] 1.035 (1.003-1.030) H 06/24/20 Unknown Urine Protein <15 mg/dl mg/dL (Negative) 06/24/20 Unknown Urine Glucose (UA) >=500 mg/dL (Negative) 06/24/20 Unknown Urine Ketones Tr mg/dL (Negative) 06/24/20 Unknown Urine Blood Neg (Negative) 06/24/20 Unknown Urine Nitrite Neg (Negative) 06/24/20 Unknown Urine Bilirubin Neg (Negative) 06/24/20 Unknown Urine Urobilinogen < 2.0 mg/dL (<2.0) 06/24/20 Unknown Ur Leukocyte Esterase Neg (Negative) 06/24/20 Unknown Urine WBC (Auto) < 1.0 /HPF (0.0-6.0) 06/24/20 Unknown Urine RBC (Auto) 3.0 /HPF (0.0-6.0) 06/24/20 Unknown Urine Mucus Few /HPF 06/24/20 Unknown Microbiology: Microbiology 06/24/20 17:02 Peripheral/Venous Blood Culture - Preliminary Culture in Progress 06/24/20 17:02 Peripheral/Venous Blood Culture - Preliminary Culture in Progress [place]/IV: Voiding Method Urinal Active Medications - Current Medications Current Medications: Generic Name Dose Route Start Last Admin Trade Name Freq PRN Reason Stop Dose Admin Acetaminophen 650 mg 06/24/20 19:37 Acetaminophen 325 Mg Tab PO Q4H PRN Pain MILD(1-3)/Fever >100.5/YI Hydrocodone Bitart/Acetaminophen 1 each 06/24/20 19:41 06/25/20 04:55 Hydrocodone/Acetaminophen 5-325 Mg Tab PO 1 each Q6HR PRN Administration PAIN Hydromorphone HCl 0.25 mg 06/24/20 19:40 06/25/20 09:44 Hydromorphone 1 Mg/1 Ml Inj IV 0.25 mg Q4H PRN Administration Pain, Moderate (4-6) Vancomycin HCl 1,500 mg/ 530 mls @ 333.333 mls/hr 06/25/20 18:00 Sodium Chloride IV Q12H RAY Ondansetron HCl 4 mg 06/24/20 19:37 06/25/20 09:44 Ondansetron 4 Mg/2 Ml Inj IV 4 mg Q8H PRN Administration Nausea And Vomiting Sodium Chloride 10 ml 06/24/20 22:00 06/25/20 05:03 Sodium Chloride 0.9% 10 Ml Flush Syringe IV 10 ml BID RAY Administration Sodium Chloride 10 ml 06/24/20 19:37 Sodium Chloride 0.9% 10 Ml Flush Syringe IV PRN PRN LINE FLUSH
[2020-06-25] MEDS ORDERED: DEXTROSE 50% IN WATER (25GM) 50 ML SYRINGE IV PRN (10:26)
[2020-06-25] MEDS ORDERED: HYDROmorphone 2 MG/1 ML INJ IV NR (12:03)
[2020-06-25] MEDS ORDERED: LIDOCAINE (1%) 10 MG/1 ML VIAL 20 ML MDV INFILTRATI NR (12:03)
[2020-06-25] MEDS: INSULIN LISPRO 100 UNIT/ML SUB-Q SCH ×3 (12:08→22:06)
--- NOTE | 2020-06-25 12:13 | Consultation ---
History of Present Illness Consult date: 06/25/20 Chief complaint: Gluteal abscess - History of present illness History of present illness: 40-year-old male with past medical history of diabetes, psoriasis who presents to the hospital with complaints of swelling and pain in the right gluteal area. He also complains of fatigue and chills over the last several days. Patient st ates he has had abscesses in the past which is had to be drained. Pain is localized to the right buttock. No alleviating or exacerbating factors. Pain is sharp and severe especially during palpation. He has been afebrile while here in the hospital. No nausea or vomiting. No abdominal pain. He also complains of a small bump in the suprapubic area without drainage. He also complains of drainage from the left axilla. He states that that abscess burst on its own and has been draining pus. He has no complaints about pain in that area. Past History Past Medical History: diabetes, other (Psoriasis) Past Surgical History: Other (Multiple I&D's for abscesses) Social history: single, smoking. denies: alcohol abuse, prescription drug abuse Family history: diabetes, hypertension Medications and Allergies Allergies Allergy/AdvReac Type Severity Reaction Status Date / Time Penicillins Allergy Unknown Verified 11/15/13 18:28 Home Medications Medication Instructions Recorded Confirmed Last Taken Type HYDROcodone/APAP 5-325 [[place] 1 each PO Q6HR PRN #20 tablet 11/15/13 Unknown Rx 5/325] Clindamycin [Clindamycin CAP] 300 mg PO TID #15 cap 03/19/19 Unknown Rx Ibuprofen [Motrin] 800 mg PO Q8HR #20 tablet 03/19/19 Unknown Rx Sulfamethoxazole/Trimethoprim 1 each PO BID #14 tablet 03/19/19 Unknown Rx [Bactrim DS TAB] Active Meds: Active Medications Acetaminophen (Acetaminophen 325 Mg Tab) 650 mg PO Q4H PRN PRN Reason: Pain MILD(1-3)/Fever >100.5/YI Hydrocodone Bitart/Acetaminophen (Hydrocodone/Acetaminophen 5-325 Mg Tab) 1 each PO Q6HR PRN PRN Reason: PAIN Last Admin: 06/25/20 04:55 Dose: 1 each Documented by: Dextrose (Dextrose 50% In Water (25gm) 50 Ml Syringe) 50 ml IV Q30MIN PRN; Protocol PRN Reason: Hypoglycemia Hydromorphone HCl (Hydromorphone 1 Mg/1 Ml Inj) 0.25 mg IV Q4H PRN PRN Reason: Pain, Moderate (4-6) Last Admin: 06/25/20 09:44 Dose: 0.25 mg Documented by: Hydromorphone HCl (Hydromorphone 2 Mg/1 Ml Inj) 1 mg IV ONCE NR Stop: 06/25/20 12:30 Vancomycin HCl 1,500 mg/ (Sodium Chloride) 530 mls @ 333.333 mls/hr IV Q12H RAY Insulin Glargine (Insulin Glargine 100 Units/Ml) 20 units SUB-Q QHS RAY Insulin Human Lispro (Insulin Lispro 100 Unit/Ml) 0 unit SUB-Q ACHS RAY; Protocol Lidocaine (Lidocaine (1%) 10 Mg/1 Ml Vial 20 Ml Mdv) 20 ml INFILTRATI ONCE NR Stop: 06/25/20 13:30 Ondansetron HCl (Ondansetron 4 Mg/2 Ml Inj) 4 mg IV Q8H PRN PRN Reason: Nausea And Vomiting Last Admin: 06/25/20 09:44 Dose: 4 mg Documented by: Sodium Chloride (Sodium Chloride 0.9% 10 Ml Flush Syringe) 10 ml IV BID RAY Last Admin: 06/25/20 05:03 Dose: 10 ml Documented by: Sodium Chloride (Sodium Chloride 0.9% 10 Ml Flush Syringe) 10 ml IV PRN PRN PRN Reason: LINE FLUSH Review of Systems All systems: negative (10 point ROS performed and negative except for that listed in HPI) Exam Vital Signs Temp Pulse Resp BP Pulse Ox 99.3 F 86 18 160/88 96 06/24/20 16:55 06/24/20 16:55 06/24/20 16:55 06/24/20 16:55 06/24/20 16:55 Narrative exam: Gen.: Awake, alert, oriented 3. No apparent distress ENT: Trachea midline. No lymphadenopathy. No scleral icterus or conjunctival pallor CV: S1, S2 present Respiratory: No audible wheezes Extremities: No clubbing, cyanosis, edema. Small opening in left axilla, superior aspect with purulent drainage. All purulent drainage expressed and dry dressing applied. Gluteal: 5 cm area of fluctuance, induration, erythema of the right intergluteal cleft. There is no drainage. There is severe tenderness to palpation. : Small, 1 cm raised area in the suprapubic region, midline. There is no erythema or fluctuance. + TTP Results - Labs 06/25/20 05:58 06/25/20 05:58 Abnormal lab results 06/24/20 06/24/20 06/24/20 Range/Units 17:02 17:02 17:02 WBC 24.6 H (4.5-11.0) K/mm3 RBC 5.36 H (3.65-5.03) M/mm3 Hgb 17.4 H (11.8-15.2) gm/dl Hct 52.3 H (35.5-45.6) % MCV 98 H (84-94) fl MCH (28-32) pg RDW (13.2-15.2) % Lymph % (Auto) (13.4-35.0) % [place] # (Auto) (0.0-0.8) K/mm3 Baso # (Auto) (0.0-0.1) K/mm3 Seg Neutrophils % (40.0-70.0) % Lymphocytes % (Manual) 4.0 L (13.4-35.0) % Seg Neutrophils # (1.8-7.7) K/mm3 Seg Neutrophils # Man 23.6 H (1.8-7.7) K/mm3 Lymphocytes # (Manual) 1.0 L (1.2-5.4) K/mm3 APTT 23.0 L (24.2-36.6) Sec. Sodium 131 L (137-145) mmol/L Chloride 97.2 L (98-107) mmol/L Glucose 366 H (75-100) mg/dL POC Glucose (70-105) mg/dL Hemoglobin A1c (4-6) % Lactic Acid (0.7-2.0) mmol/L Calcium (8.4-10.2) mg/dL Magnesium 1.50 L (1.7-2.3) mg/dL Total Protein (6.3-8.2) g/dL Albumin 3.6 L (3.9-5) g/dL Ur Specific [place] (1.003-1.030) 06/24/20 06/24/20 06/24/20 Range/Units 17:02 18:47 21:50 WBC (4.5-11.0) K/mm3 RBC (3.65-5.03) M/mm3 Hgb (11.8-15.2) gm/dl Hct (35.5-45.6) % MCV (84-94) fl MCH (28-32) pg RDW (13.2-15.2) % Lymph % (Auto) (13.4-35.0) % [place] # (Auto) (0.0-0.8) K/mm3 Baso # (Auto) (0.0-0.1) K/mm3 Seg Neutrophils % (40.0-70.0) % Lymphocytes % (Manual) (13.4-35.0) % Seg Neutrophils # (1.8-7.7) K/mm3 Seg Neutrophils # Man (1.8-7.7) K/mm3 Lymphocytes # (Manual) (1.2-5.4) K/mm3 APTT (24.2-36.6) Sec. Sodium (137-145) mmol/L Chloride (98-107) mmol/L Glucose (75-100) mg/dL POC Glucose 320 H (70-105) mg/dL Hemoglobin A1c (4-6) % Lactic Acid 2.50 H* 2.50 H* (0.7-2.0) mmol/L Calcium (8.4-10.2) mg/dL Magnesium (1.7-2.3) mg/dL Total Protein (6.3-8.2) g/dL Albumin (3.9-5) g/dL Ur Specific [place] (1.003-1.030) 06/24/20 06/25/20 06/25/20 Range/Units Unknown 05:58 05:58 WBC 27.2 H (4.5-11.0) K/mm3 RBC (3.65-5.03) M/mm3 Hgb 15.4 H (11.8-15.2) gm/dl Hct (35.5-45.6) % MCV 99 H (84-94) fl MCH 33 H (28-32) pg RDW 13.1 L (13.2-15.2) % Lymph % (Auto) 7.2 L (13.4-35.0) % [place] # (Auto) 1.6 H (0.0-0.8) K/mm3 Baso # (Auto) 0.2 H (0.0-0.1) K/mm3 Seg Neutrophils % 85.0 H (40.0-70.0) % Lymphocytes % (Manual) (13.4-35.0) % Seg Neutrophils # 23.1 H (1.8-7.7) K/mm3 Seg Neutrophils # Man (1.8-7.7) K/mm3 Lymphocytes # (Manual) (1.2-5.4) K/mm3 APTT (24.2-36.6) Sec. Sodium 135 L (137-145) mmol/L Chloride (98-107) mmol/L Glucose 297 H (75-100) mg/dL POC Glucose (70-105) mg/dL Hemoglobin A1c (4-6) % Lactic Acid (0.7-2.0) mmol/L Calcium 8.3 L (8.4-10.2) mg/dL Magnesium (1.7-2.3) mg/dL Total Protein 6.1 L (6.3-8.2) g/dL Albumin 2.9 L (3.9-5) g/dL Ur Specific [place] 1.035 H (1.003-1.030) 06/25/20 06/25/20 Range/Units 05:58 07:52 WBC (4.5-11.0) K/mm3 RBC (3.65-5.03) M/mm3 Hgb (11.8-15.2) gm/dl Hct (35.5-45.6) % MCV (84-94) fl MCH (28-32) pg RDW (13.2-15.2) % Lymph % (Auto) (13.4-35.0) % [place] # (Auto) (0.0-0.8) K/mm3 Baso # (Auto) (0.0-0.1) K/mm3 Seg Neutrophils % (40.0-70.0) % Lymphocytes % (Manual) (13.4-35.0) % Seg Neutrophils # (1.8-7.7) K/mm3 Seg Neutrophils # Man (1.8-7.7) K/mm3 Lymphocytes # (Manual) (1.2-5.4) K/mm3 APTT (24.2-36.6) Sec. Sodium (137-145) mmol/L Chloride (98-107) mmol/L Glucose (75-100) mg/dL POC Glucose 265 H (70-105) mg/dL Hemoglobin A1c 9.5 H (4-6) % Lactic Acid (0.7-2.0) mmol/L Calcium (8.4-10.2) mg/dL Magnesium (1.7-2.3) mg/dL Total Protein (6.3-8.2) g/dL Albumin (3.9-5) g/dL Ur Specific [place] (1.003-1.030) Diabetes panel 06/24/20 06/25/20 06/25/20 Range/Units 17:02 05:58 05:58 Sodium 131 L 135 L (137-145) mmol/L Potassium 4.4 4.1 (3.6-5.0) mmol/L Chloride 97.2 L 103.3 (98-107) mmol/L Carbon Dioxide 22 23 (22-30) mmol/L BUN 20 11 (9-20) mg/dL Creatinine 0.9 0.9 (0.8-1.3) mg/dL Glucose 366 H 297 H (75-100) mg/dL Hemoglobin A1c 9.5 H (4-6) % Calcium 9.2 8.3 L (8.4-10.2) mg/dL AST 13 10 (5-40) units/L ALT 23 18 (7-56) units/L Alkaline Phosphatase 110 89 (35-129) units/L Total Protein 7.5 6.1 L (6.3-8.2) g/dL Albumin 3.6 L 2.9 L (3.9-5) g/dL Calcium panel 06/24/20 06/25/20 Range/Units 17:02 05:58 Calcium 9.2 8.3 L (8.4-10.2) mg/dL Albumin 3.6 L 2.9 L (3.9-5) g/dL Pituitary panel 06/24/20 06/25/20 Range/Units 17:02 05:58 Sodium 131 L 135 L (137-145) mmol/L Potassium 4.4 4.1 (3.6-5.0) mmol/L Chloride 97.2 L 103.3 (98-107) mmol/L Carbon Dioxide 22 23 (22-30) mmol/L BUN 20 11 (9-20) mg/dL Creatinine 0.9 0.9 (0.8-1.3) mg/dL Glucose 366 H 297 H (75-100) mg/dL Calcium 9.2 8.3 L (8.4-10.2) mg/dL Adrenal panel 06/24/20 06/25/20 Range/Units 17:02 05:58 Sodium 131 L 135 L (137-145) mmol/L Potassium 4.4 4.1 (3.6-5.0) mmol/L Chloride 97.2 L 103.3 (98-107) mmol/L Carbon Dioxide 22 23 (22-30) mmol/L BUN 20 11 (9-20) mg/dL Creatinine 0.9 0.9 (0.8-1.3) mg/dL Glucose 366 H 297 H (75-100) mg/dL Calcium 9.2 8.3 L (8.4-10.2) mg/dL Total Bilirubin 0.50 0.40 (0.1-1.2) mg/dL AST 13 10 (5-40) units/L ALT 23 18 (7-56) units/L Alkaline Phosphatase 110 89 (35-129) units/L Total Protein 7.5 6.1 L (6.3-8.2) g/dL Albumin 3.6 L 2.9 L (3.9-5) g/dL - Imaging CT scan - abdomen: report reviewed, image reviewed CT scan - pelvis: report reviewed, image reviewed Assessment and Plan 40 yo M with 1. sepsis 2/2 #2 2. R gluteal abscess 3. left axillary abscess - spontaneously draining 4. Diabetes - Hb A1C 9.5 Plan: 1. Consistent carbohydrate diet 2. IV fluid 3. Strict glucose control 4. Recommend incision and drainage of right gluteal abscess -elmer with patient and consent obtained. Will perform at bedside 5. Abscess cavity cultures will be obtained during I&D 6. Warm compresses to suprapubic area 7. As needed pain control 8. Daily dressing changes to left axilla. Likely hidradenitis suppurativa. Will order Hibiclens showers daily. Thank you for this consultation. Please call with any questions or concerns. Evaluation and treatment of this patient was during the time of the national and state emergency arising from COVID19 coronavirus pandemic. Treatment and procedures performed meet the current and available best practice and guidelines for patient during the COVID pandemic.
--- NOTE | 2020-06-25 12:59 | Procedure Note ---
Date of procedure: 06/25/20 Pre-op diagnosis: abscess right gluteal Post-op diagnosis: same Procedure: incision and drainage of right gluteal abscess Findings: HPI and indication: Patient is a 40-year-old male with diabetes who presented to the emergency room with complaints of chills, fatigue, and pain/swelling of the right buttock. He was found to have a right gluteal abscess. It was recommended that this be drained. All risk and benefits, alternatives. The procedure were discussed with the patient and questions answered. Consent obtained. Procedure in detail: The patient was identified in his hospital room. He was premedicated with 1 mg of IV Dilaudid. He was placed in lateral decubitus position. The area of fluctuance was easily visualized and the skin prepped with betadine. Time out was performed. Local anesthetic was infiltrated into the skin at the intended incision site. A 2 cm incision was made in the area of fluctuance using an 11 blade and there was immediate drainage of foul-smelling pus under pressure. Cultures were obtained. The abscess cavity was probed with a cotton tip applicator and all loculations broken up. Using pressure the remainder of the purulent fluid was evacuated. Greater than 30 cc of pus was co ntained within the abscess. After all pus was evacuated the cavity was irrigated with saline. Pressure was held for hemostasis. There was mild venous oozing from the skin at the site of the incision. The wound was then packed with 1 piece of Mesalt covered with a 4 x 4 gauze and a cover site dressing. The procedure was tolerated well. All sharps were disposed of appropriately. The patient's RN was present throughout the entire procedure. Anesthesia: local Surgeon: OSKAR VAN Estimated blood loss: minimal Pathology: list (Wound cultures) Specimen disposition: to lab Condition: stable Disposition: no change
--- NOTE | 2020-06-25 16:02 | Consultation ---
History of Present Illness - Reason for Consult Consult date: 06/25/20 - History of Present Illness 40-year-old male past medical history diabetes, nicotine dependence, plaque psoriasis currently on certolizumab presented to hospital with lightheadedness. He also complains of fevers and poor p.o. intake. He was found to have gluteal cellulitis and abscess. He is taking for I&D. With a white count 27.2 currently on vancomycin. Blood and surgical cultures no growth so far. Imaging personally reviewed: Abdomen pelvis CT: Cellulitis with abscess of the right gluteal cleft Review of Systems: Bold if positive, otherwise negative General: fevers, chills, rigors HEENT: visual disturbance, diplopia, eye pain Respiratory: cough, sputum, hemoptysis, shortness of breath Cardiovascular: chest pain, syncope Gastrointestinal: nausea, vomiting, diarrhea, abdominal pain Genitourinary: dysuria, hematuria, flank pain Musculoskeletal: neck pain, back pain, joint pain, edema Neurologic: headaches, seizures Hematologic: easy bruising or bleeding Endocrine: night sweats, acute weight loss Skin: rash, jaundice, redness Psychiatric: suicidal, homicidal ideation Past History Past Medical History: diabetes, other (Psoriasis) Past Surgical History: Other (Multiple I&D's for abscesses) Social history: single, smoking. denies: alcohol abuse, prescription drug abuse Family history: diabetes, hypertension Medications and Allergies Allergies Allergy/AdvReac Type Severity Reaction Status Date / Time Penicillins Allergy Unknown Verified 11/15/13 18:28 Home Medications Medication Instructions Recorded Confirmed Last Taken Type HYDROcodone/APAP 5-325 [[place] 1 each PO Q6HR PRN #20 tablet 11/15/13 Unknown Rx 5/325] Clindamycin [Clindamycin CAP] 300 mg PO TID #15 cap 03/19/19 Unknown Rx Ibuprofen [Motrin] 800 mg PO Q8HR #20 tablet 03/19/19 Unknown Rx Sulfamethoxazole/Trimethoprim 1 each PO BID #14 tablet 03/19/19 Unknown Rx [Bactrim DS TAB] Active Meds: Active Medications Acetaminophen (Acetaminophen 325 Mg Tab) 650 mg PO Q4H PRN PRN Reason: Pain MILD(1-3)/Fever >100.5/YI Hydrocodone Bitart/Acetaminophen (Hydrocodone/Acetaminophen 5-325 Mg Tab) 1 each PO Q6HR PRN PRN Reason: PAIN Last Admin: 06/25/20 04:55 Dose: 1 each Documented by: Dextrose (Dextrose 50% In Water (25gm) 50 Ml Syringe) 50 ml IV Q30MIN PRN; Protocol PRN Reason: Hypoglycemia Hydromorphone HCl (Hydromorphone 1 Mg/1 Ml Inj) 0.25 mg IV Q4H PRN PRN Reason: Pain, Moderate (4-6) Last Admin: 06/25/20 09:44 Dose: 0.25 mg Documented by: Vancomycin HCl 1,500 mg/ (Sodium Chloride) 530 mls @ 333.333 mls/hr IV Q12H RAY Insulin Glargine (Insulin Glargine 100 Units/Ml) 20 units SUB-Q QHS RAY Insulin Human Lispro (Insulin Lispro 100 Unit/Ml) 0 unit SUB-Q ACHS RAY; Protocol Ondansetron HCl (Ondansetron 4 Mg/2 Ml Inj) 4 mg IV Q8H PRN PRN Reason: Nausea And Vomiting Last Admin: 06/25/20 09:44 Dose: 4 mg Documented by: Sodium Chloride (Sodium Chloride 0.9% 10 Ml Flush Syringe) 10 ml IV BID RAY Last Admin: 06/25/20 05:03 Dose: 10 ml Documented by: Sodium Chloride (Sodium Chloride 0.9% 10 Ml Flush Syringe) 10 ml IV PRN PRN PRN Reason: LINE FLUSH Physical Examination - Physical Exam Narrative exam: Physical Exam: Constitutional: Alert, cooperative. No acute distress Head, Ears, Nose: Normocephalic, atraumatic. External ears, nose normal Eyes: Conjunctivae/corneas clear. No icterus. No ptosis. Neck: Supple, no meningeal signs Oral: dentition fair, no thrush Cardiovascular: S1, S2 normal. Respiratory: Good air entry, clear to auscultation bilaterally GI: Soft, non-tender; bowel sounds normal. No peritoneal signs. Musculoskeletal: No pedal edema, no cyanosis. Skin: Right gluteal cleft with bandage in place Hem/Lymphatic: No palpable cervical or supraclavicular nodes. No lymphangitis Psych: Mood ok. Affect normal Neurological: Awake, alert, oriented. No gross abnormality - Constitutional Vitals: Vital Signs Temp Pulse Resp BP Pulse Ox 99.0 F 84 18 134/86 94 06/25/20 07:37 06/25/20 07:37 06/25/20 07:37 06/25/20 07:37 06/25/20 11:19 Temperature -Last 24 Hours Temperature 99.0 F Temperature 99.2 F Temperature 98.6 F Temperature 99.0 F Temperature 98.1 F Temperature 99.3 F Results - Labs CBC & Chem 7: 06/25/20 05:58 06/25/20 05:58 Labs: Abnormal lab results 06/24/20 06/24/20 06/24/20 Range/Units 17:02 17:02 17:02 WBC 24.6 H (4.5-11.0) K/mm3 RBC 5.36 H (3.65-5.03) M/mm3 Hgb 17.4 H (11.8-15.2) gm/dl Hct 52.3 H (35.5-45.6) % MCV 98 H (84-94) fl MCH (28-32) pg RDW (13.2-15.2) % Lymph % (Auto) (13.4-35.0) % [place] # (Auto) (0.0-0.8) K/mm3 Baso # (Auto) (0.0-0.1) K/mm3 Seg Neutrophils % (40.0-70.0) % Lymphocytes % (Manual) 4.0 L (13.4-35.0) % Seg Neutrophils # (1.8-7.7) K/mm3 Seg Neutrophils # Man 23.6 H (1.8-7.7) K/mm3 Lymphocytes # (Manual) 1.0 L (1.2-5.4) K/mm3 APTT 23.0 L (24.2-36.6) Sec. Sodium 131 L (137-145) mmol/L Chloride 97.2 L (98-107) mmol/L Glucose 366 H (75-100) mg/dL POC Glucose (70-105) mg/dL Hemoglobin A1c (4-6) % Lactic Acid (0.7-2.0) mmol/L Calcium (8.4-10.2) mg/dL Magnesium 1.50 L (1.7-2.3) mg/dL Total Protein (6.3-8.2) g/dL Albumin 3.6 L (3.9-5) g/dL Ur Specific [place] (1.003-1.030) 06/24/20 06/24/20 06/24/20 Range/Units 17:02 18:47 21:50 WBC (4.5-11.0) K/mm3 RBC (3.65-5.03) M/mm3 Hgb (11.8-15.2) gm/dl Hct (35.5-45.6) % MCV (84-94) fl MCH (28-32) pg RDW (13.2-15.2) % Lymph % (Auto) (13.4-35.0) % [place] # (Auto) (0.0-0.8) K/mm3 Baso # (Auto) (0.0-0.1) K/mm3 Seg Neutrophils % (40.0-70.0) % Lymphocytes % (Manual) (13.4-35.0) % Seg Neutrophils # (1.8-7.7) K/mm3 Seg Neutrophils # Man (1.8-7.7) K/mm3 Lymphocytes # (Manual) (1.2-5.4) K/mm3 APTT (24.2-36.6) Sec. Sodium (137-145) mmol/L Chloride (98-107) mmol/L Glucose (75-100) mg/dL POC Glucose 320 H (70-105) mg/dL Hemoglobin A1c (4-6) % Lactic Acid 2.50 H* 2.50 H* (0.7-2.0) mmol/L Calcium (8.4-10.2) mg/dL Magnesium (1.7-2.3) mg/dL Total Protein (6.3-8.2) g/dL Albumin (3.9-5) g/dL Ur Specific [place] (1.003-1.030) 06/24/20 06/25/20 06/25/20 Range/Units Unknown 05:58 05:58 WBC 27.2 H (4.5-11.0) K/mm3 RBC (3.65-5.03) M/mm3 Hgb 15.4 H (11.8-15.2) gm/dl Hct (35.5-45.6) % MCV 99 H (84-94) fl MCH 33 H (28-32) pg RDW 13.1 L (13.2-15.2) % Lymph % (Auto) 7.2 L (13.4-35.0) % [place] # (Auto) 1.6 H (0.0-0.8) K/mm3 Baso # (Auto) 0.2 H (0.0-0.1) K/mm3 Seg Neutrophils % 85.0 H (40.0-70.0) % Lymphocytes % (Manual) (13.4-35.0) % Seg Neutrophils # 23.1 H (1.8-7.7) K/mm3 Seg Neutrophils # Man (1.8-7.7) K/mm3 Lymphocytes # (Manual) (1.2-5.4) K/mm3 APTT (24.2-36.6) Sec. Sodium 135 L (137-145) mmol/L Chloride (98-107) mmol/L Glucose 297 H (75-100) mg/dL POC Glucose (70-105) mg/dL Hemoglobin A1c (4-6) % Lactic Acid (0.7-2.0) mmol/L Calcium 8.3 L (8.4-10.2) mg/dL Magnesium (1.7-2.3) mg/dL Total Protein 6.1 L (6.3-8.2) g/dL Albumin 2.9 L (3.9-5) g/dL Ur Specific [place] 1.035 H (1.003-1.030) 06/25/20 06/25/20 06/25/20 Range/Units 05:58 07:52 11:05 WBC (4.5-11.0) K/mm3 RBC (3.65-5.03) M/mm3 Hgb (11.8-15.2) gm/dl Hct (35.5-45.6) % MCV (84-94) fl MCH (28-32) pg RDW (13.2-15.2) % Lymph % (Auto) (13.4-35.0) % [place] # (Auto) (0.0-0.8) K/mm3 Baso # (Auto) (0.0-0.1) K/mm3 Seg Neutrophils % (40.0-70.0) % Lymphocytes % (Manual) (13.4-35.0) % Seg Neutrophils # (1.8-7.7) K/mm3 Seg Neutrophils # Man (1.8-7.7) K/mm3 Lymphocytes # (Manual) (1.2-5.4) K/mm3 APTT (24.2-36.6) Sec. Sodium (137-145) mmol/L Chloride (98-107) mmol/L Glucose (75-100) mg/dL POC Glucose 265 H 236 H (70-105) mg/dL Hemoglobin A1c 9.5 H (4-6) % Lactic Acid (0.7-2.0) mmol/L Calcium (8.4-10.2) mg/dL Magnesium (1.7-2.3) mg/dL Total Protein (6.3-8.2) g/dL Albumin (3.9-5) g/dL Ur Specific [place] (1.003-1.030) Assessment and Plan Cultures: Blood culture 06/24/2020 no growth Wound culture 06/25/2020 no growth A/P: 40-year-old male past medical history diabetes, nicotine dependence, plaque psoriasis admitted with gluteal cleft abscess #Right gluteal cleft abscess: Status post I&D today. Will follow cultures and give culture directed antibiotic recommendations assuming they are positive. #Axillary and suprapubic cellulitis: With spontaneously draining abscess in the axilla and small bump in the suprapubic area. As such we will recommend full course of antibiotics despite drainage of gluteal abscess. #Plaque psoriasis: Currently on certolizmab. Maintain pain control to decrease cellulitis outbreaks. #Diabetes: tight glycemic control for best outcomes. Recs: -Continue vancomycin for now goal trough 10-20 -Follow-up blood, surgical cultures -Ideally be able to send on p.o. regimen that is culture growing. Thank you for the consult, we will continue to follow. Lise Robertson MD [facility] ([facility]) O: [phone] F: [phone]
[2020-06-25] MEDS: VANCOMYCIN 1,500 MG in SODIUM CHLORIDE 0.9% 500 ML 500 ML IV SCH (18:12)
[2020-06-25] MEDS ORDERED: INSULIN GLARGINE 100 UNITS/ML SUB-Q SCH (22:00)
[2020-06-26] MEDS: VANCOMYCIN 1,500 MG in SODIUM CHLORIDE 0.9% 500 ML 500 ML IV SCH (05:59)
[2020-06-26 06:36] LABS: Hematocrit 49.3 % (35.5-45.6); Hemoglobin 16.2 gm/dl (11.8-15.2); Mean Corpuscular HGB Conc 33 % (32-34); Mean Corpuscular Volume 99 fl (84-94); Platelet Count 230 K/mm3 (140-440); Red Blood Count 4.97 M/mm3 (3.65-5.03); Red Cell Distribution Width 13.3 % (13.2-15.2)
[2020-06-26 06:55] LABS: BUN/Creatinine Ratio 11; Blood Urea Nitrogen 11 mg/dL (9-20); Calcium 8.9 mg/dL (8.4-10.2); Hemolysis Index 12
[2020-06-26] MEDS: INSULIN LISPRO 100 UNIT/ML SUB-Q SCH ×2 (09:45→12:03)
[2020-06-26 11:57] VITALS: BP 114/72
--- NOTE | 2020-06-26 13:22 | Progress Note ---
Assessment and Plan Assessment and plan: 40 YO Male with DM, Nicotine Dependence, Plaque Psoriasis currently taking Cimzia injections presents to ED for evaluations. Pt reports "I felt like I was going to faint". Pt states that he has experienced weakness, dizziness, and felt like he was going to pass out. Patient acknowledges subjective fever, and decreased oral intake. EMS was notified and upon arrival the patient was found to be in distress and subsequently transported to [facility] for further care and evaluation of the aforementioned symptoms. The patient was seen and evaluated in the emergency department. All lab and imaging studies reviewed. Patient found to have sepsis suspected secondary to buttock cellulitis with probable abscess, left axillary cellulitis, acidosis. Patient admitted to medical floor and initiated on sepsis protocol. CT scan abdomen and pelvis is ordered and is pending at time of admission. Patient denies chills, chest pain, palpitations, productive cough, recent ill contacts, or known exposure to COVID-19. No prior admission for review. All medication listed at time of admission has been reconciled. CT abdomen and pelvis reviewed shows cellulitis with abscess of 3 cm to the right gluteal cleft without involvement of the anus. Sepsis secondary to gluteal abscess Diabetes mellitus Plaque psoriasis Gluteal cellulitis right Hyponatremia now resolved Worsening leukocytosis in the setting of sepsis Plan 06/26: Blood sugar remains poorly controlled will adjust insulin therapy at this time. Will check hemoglobin A1c. Awaiting further instructions from surgery and infectious disease specialist. Continue supportive care with sepsis protocol Continue IV fluids Discussed with infectious disease and surgery to go to see the patient for possible I&D and adjustment of medications. Patient takes Metformin outpatient for his diabetes 500 mg twice daily will hold that and start the patient on insulin therapy at this point for better control in the setting of an infectious process. DVT and GI prophylaxis Plan of care discussed with the patient in detail History Interval history: Patient seen and examined no new complaints tolerated I&D yesterday. Hospitalist Physical - Physical exam Narrative exam: VITAL SIGNS: Reviewed. GENERAL: The patient appears normally developed, Vital signs as documented. HEAD: No signs of head trauma. EYES: Pupils are equal. Extraocular motions intact. EARS: Hearing grossly intact. MOUTH: Oropharynx is normal. NECK: No adenopathy, no JVD. CHEST: Chest with clear breath sounds bilaterally. No wheezes, rales, or rhonchi. CARDIAC: Regular rate and rhythm. S1 and S2, without murmurs, gallops, or rubs. VASCULAR: No Edema. Peripheral pulses normal and equal in all extremities. ABDOMEN: Soft, non tender and non distended. No rebound or guarding, and no masses palpated. Bowel Sounds normal. MUSCULOSKELETAL: Good range of motion of all major joints. Extremities without clubbing, cyanosis or edema. NEUROLOGIC EXAM: Alert and oriented x 3 No focal sensory or strength deficits. Speech normal. Follows commands. PSYCHIATRIC: Mood normal. SKIN: . Dressing over gluteal site. Detail exam as documented in skin a ssessment - Constitutional Vitals: Temp Pulse Resp BP Pulse Ox 98.4 F 80 18 114/72 92 06/26/20 11:28 06/26/20 11:28 06/26/20 11:28 06/26/20 11:28 06/26/20 11:28 General appearance: Present: mild distress Results - Labs CBC & Chem 7: 06/26/20 06:25 06/26/20 06:25 Labs: Laboratory Last Values WBC 14.1 K/mm3 (4.5-11.0) H 06/26/20 06:25 RBC 4.97 M/mm3 (3.65-5.03) 06/26/20 06:25 Hgb 16.2 gm/dl (11.8-15.2) H 06/26/20 06:25 Hct 49.3 % (35.5-45.6) H 06/26/20 06:25 MCV 99 fl (84-94) H 06/26/20 06:25 MCH 33 pg (28-32) H 06/26/20 06:25 MCHC 33 % (32-34) 06/26/20 06:25 RDW 13.3 % (13.2-15.2) 06/26/20 06:25 Plt Count 230 K/mm3 (140-440) 06/26/20 06:25 Lymph % (Auto) 7.2 % (13.4-35.0) L 06/25/20 05:58 [place] % (Auto) 6.0 % (0.0-7.3) 06/25/20 05:58 Eos % (Auto) 1.2 % (0.0-4.3) 06/25/20 05:58 Baso % (Auto) 0.6 % (0.0-1.8) 06/25/20 05:58 Lymph # (Auto) 2.0 K/mm3 (1.2-5.4) 06/25/20 05:58 [place] # (Auto) 1.6 K/mm3 (0.0-0.8) H 06/25/20 05:58 Eos # (Auto) 0.3 K/mm3 (0.0-0.4) 06/25/20 05:58 Baso # (Auto) 0.2 K/mm3 (0.0-0.1) H 06/25/20 05:58 Add Manual Diff Complete 06/24/20 17:02 Total Counted 100 06/24/20 17:02 Seg Neutrophils % 85.0 % (40.0-70.0) H 06/25/20 05:58 Lymphocytes % (Manual) 4.0 % (13.4-35.0) L 06/24/20 17:02 Nucleated RBC % Not Reportable 06/24/20 17:02 Seg Neutrophils # 23.1 K/mm3 (1.8-7.7) H 06/25/20 05:58 Seg Neutrophils # Man 23.6 K/mm3 (1.8-7.7) H 06/24/20 17:02 Band Neutrophils # 0.0 K/mm3 06/24/20 17:02 Lymphocytes # (Manual) 1.0 K/mm3 (1.2-5.4) L 06/24/20 17:02 Abs React Lymphs (Man) 0.0 K/mm3 06/24/20 17:02 Monocytes # (Manual) 0.0 K/mm3 (0.0-0.8) 06/24/20 17:02 Eosinophils # (Manual) 0.0 K/mm3 (0.0-0.4) 06/24/20 17:02 Basophils # (Manual) 0.0 K/mm3 (0.0-0.1) 06/24/20 17:02 Metamyelocytes # 0.0 K/mm3 06/24/20 17:02 Myelocytes # 0.0 K/mm3 06/24/20 17:02 Promyelocytes # 0.0 K/mm3 06/24/20 17:02 Blast Cells # 0.0 K/mm3 06/24/20 17:02 WBC Morphology Not Reportable 06/24/20 17:02 Hypersegmented Neuts Not Reportable 06/24/20 17:02 Hyposegmented Neuts Not Reportable 06/24/20 17:02 Hypogranular Neuts Not Reportable 06/24/20 17:02 Smudge Cells Not Reportable 06/24/20 17:02 Toxic Granulation Not Reportable 06/24/20 17:02 Toxic Vacuolation Not Reportable 06/24/20 17:02 Dohle Bodies Not Reportable 06/24/20 17:02 Pelger-Huet Anomaly Not Reportable 06/24/20 17:02 Mika Rods Not Reportable 06/24/20 17:02 Platelet Estimate Not Reportable 06/24/20 17:02 Clumped Platelets Not Reportable 06/24/20 17:02 Plt Clumps, EDTA Not Reportable 06/24/20 17:02 Large Platelets Not Reportable 06/24/20 17:02 Giant Platelets Not Reportable 06/24/20 17:02 Platelet Satelliting Not Reportable 06/24/20 17:02 Plt Morphology Comment Not Reportable 06/24/20 17:02 RBC Morphology Normal 06/24/20 17:02 Dimorphic RBCs Not Reportable 06/24/20 17:02 Polychromasia Not Reportable 06/24/20 17:02 Hypochromasia Not Reportable 06/24/20 17:02 Poikilocytosis Not Reportable 06/24/20 17:02 Anisocytosis Not Reportable 06/24/20 17:02 Microcytosis Not Reportable 06/24/20 17:02 Macrocytosis Not Reportable 06/24/20 17:02 Spherocytes Not Reportable 06/24/20 17:02 Pappenheimer Bodies Not Reportable 06/24/20 17:02 Sickle Cells Not Reportable 06/24/20 17:02 Target Cells Not Reportable 06/24/20 17:02 Tear Drop Cells Not Reportable 06/24/20 17:02 Ovalocytes Not Reportable 06/24/20 17:02 Helmet Cells Not Reportable 06/24/20 17:02 [place] Bodies Not Reportable 06/24/20 17:02 [place] Rings Not Reportable 06/24/20 17:02 [place] Cells Not Reportable 06/24/20 17:02 Bite Cells Not Reportable 06/24/20 17:02 Crenated Cell Not Reportable 06/24/20 17:02 Elliptocytes Not Reportable 06/24/20 17:02 Acanthocytes (Spur) Not Reportable 06/24/20 17:02 Rouleaux Not Reportable 06/24/20 17:02 Hemoglobin C Crystals Not Reportable 06/24/20 17:02 Schistocytes Not Reportable 06/24/20 17:02 Malaria parasites Not Reportable 06/24/20 17:02 Juan A Bodies Not Reportable 06/24/20 17:02 Hem Pathologist Commnt No 06/24/20 17:02 PT 13.5 Sec. (12.2-14.9) 06/24/20 17:02 INR 1.04 (0.87-1.13) 06/24/20 17:02 APTT 23.0 Sec. (24.2-36.6) L 06/24/20 17:02 Sodium 135 mmol/L (137-145) L 06/26/20 06:25 Potassium 4.4 mmol/L (3.6-5.0) 06/26/20 06:25 Chloride 99.5 mmol/L (98-107) 06/26/20 06:25 Carbon Dioxide 28 mmol/L (22-30) 06/26/20 06:25 Anion Gap 12 mmol/L 06/26/20 06:25 BUN 11 mg/dL (9-20) 06/26/20 06:25 Creatinine 1.0 mg/dL (0.8-1.3) 06/26/20 06:25 Estimated GFR > 60 ml/min 06/26/20 06:25 BUN/Creatinine Ratio 11 % 06/26/20 06:25 Glucose 249 mg/dL (75-100) H 06/26/20 06:25 POC Glucose 336 mg/dL (70-105) H 06/26/20 11:26 Hemoglobin A1c 9.5 % (4-6) H 06/25/20 05:58 Lactic Acid 1.20 mmol/L (0.7-2.0) 06/25/20 05:58 Calcium 8.9 mg/dL (8.4-10.2) 06/26/20 06:25 Magnesium 1.50 mg/dL (1.7-2.3) L 06/24/20 17:02 Total Bilirubin 0.40 mg/dL (0.1-1.2) 06/25/20 05:58 AST 10 units/L (5-40) 06/25/20 05:58 ALT 18 units/L (7-56) 06/25/20 05:58 Alkaline Phosphatase 89 units/L (35-129) 06/25/20 05:58 Total Protein 6.1 g/dL (6.3-8.2) L 06/25/20 05:58 Albumin 2.9 g/dL (3.9-5) L 06/25/20 05:58 Albumin/Globulin Ratio 0.9 % 06/25/20 05:58 Urine Color Yellow (Yellow) 06/24/20 Unknown Urine Turbidity Clear (Clear) 06/24/20 Unknown Urine pH 6.0 (5.0-7.0) 06/24/20 Unknown Ur Specific [place] 1.035 (1.003-1.030) H 06/24/20 Unknown Urine Protein <15 mg/dl mg/dL (Negative) 06/24/20 Unknown Urine Glucose (UA) >=500 mg/dL (Negative) 06/24/20 Unknown Urine Ketones Tr mg/dL (Negative) 06/24/20 Unknown Urine Blood Neg (Negative) 06/24/20 Unknown Urine Nitrite Neg (Negative) 06/24/20 Unknown Urine Bilirubin Neg (Negative) 06/24/20 Unknown Urine Urobilinogen < 2.0 mg/dL (<2.0) 06/24/20 Unknown Ur Leukocyte Esterase Neg (Negative) 06/24/20 Unknown Urine WBC (Auto) < 1.0 /HPF (0.0-6.0) 06/24/20 Unknown Urine RBC (Auto) 3.0 /HPF (0.0-6.0) 06/24/20 Unknown Urine Mucus Few /HPF 06/24/20 Unknown Microbiology: Microbiology 06/24/20 17:02 Peripheral/Venous Blood Culture - Preliminary NO GROWTH AFTER 24 HOURS 06/24/20 17:02 Peripheral/Venous Blood Culture - Preliminary NO GROWTH AFTER 24 HOURS 06/25/20 Unknown Buttock Wound Culture - Preliminary [place]/IV: Voiding Method Toilet Active Medications - Current Medications Current Medications: Generic Name Dose Route Start Last Admin Trade Name Freq PRN Reason Stop Dose Admin Acetaminophen 650 mg 04/13/21 19:37 Acetaminophen 325 Mg Tab PO Q4H PRN Pain MILD(1-3)/Fever >100.5/YI Hydrocodone Bitart/Acetaminophen 1 each 06/24/20 19:41 06/25/20 18:20 Hydrocodone/Acetaminophen 5-325 Mg Tab PO 1 each Q6HR PRN Administration PAIN Dextrose 50 ml 06/25/20 10:26 Dextrose 50% In Water (25gm) 50 Ml Syringe IV Q30MIN PRN Hypoglycemia Protocol Hydromorphone HCl 0.25 mg 06/24/20 19:40 06/25/20 09:44 Hydromorphone 1 Mg/1 Ml Inj IV 0.25 mg Q4H PRN Administration Pain, Moderate (4-6) Vancomycin HCl 1,500 mg/ 530 mls @ 333.333 mls/hr 06/25/20 18:00 06/26/20 05:59 Sodium Chloride IV 333.333 mls/hr Q12H RAY Administration Insulin Glargine 25 units 06/26/20 22:00 Insulin Glargine 100 Units/Ml SUB-Q QHS RAY Insulin Human Lispro 0 unit 06/25/20 11:30 06/26/20 12:03 Insulin Lispro 100 Unit/Ml SUB-Q 6 unit ACHS RAY Administration Protocol Ondansetron HCl 4 mg 06/24/20 19:37 06/25/20 09:44 Ondansetron 4 Mg/2 Ml Inj IV 4 mg Q8H PRN Administration Nausea And Vomiting Sodium Chloride 10 ml 06/24/20 22:00 06/26/20 12:03 Sodium Chloride 0.9% 10 Ml Flush Syringe IV 10 ml BID RAY Administration Sodium Chloride 10 ml 06/24/20 19:37 Sodium Chloride 0.9% 10 Ml Flush Syringe IV PRN PRN LINE FLUSH
--- NOTE | 2020-06-26 13:31 | Progress Note ---
Assessment and Plan Cultures: Blood culture 06/24/2020 no growth Wound culture 06/25/2020 no growth A/P: 40-year-old male past medical history diabetes, nicotine dependence, plaque psoriasis admitted with gluteal cleft abscess #Right gluteal cleft abscess: Status post I&D today. Will follow cultures and give culture directed antibiotic recommendations assuming they are positive. #Axillary and suprapubic cellulitis: With spontaneously draining abscess in the axilla and small bump in the suprapubic area. As such we will recommend full course of antibiotics despite drainage of gluteal abscess. #Plaque psoriasis: Currently on certolizmab. Maintain pain control to decrease cellulitis outbreaks. #Diabetes: tight glycemic control for best outcomes. Recs: -Continue vancomycin for now goal trough 10-20 -Follow-up blood, surgical cultures -Ideally be able to send on p.o. regimen that is culture directed. Thank you for the consult, we will continue to follow. Lise Robertson MD [facility] ([facility]) O: [phone] F: [phone] Subjective Date of service: 06/26/20 Interval history: Afebrile, white count improving of 14.1. Cultures remain pending. Objective - Exam Narrative Exam: Physical Exam: Constitutional: Alert, cooperative. No acute distress Head, Ears, Nose: Normocephalic, atraumatic. External ears, nose normal Eyes: Conjunctivae/corneas clear. No icterus. No ptosis. Neck: Supple, no meningeal signs Oral: dentition fair, no thrush Cardiovascular: S1, S2 normal. Respiratory: Good air entry, clear to auscultation bilaterally GI: Soft, non-tender; bowel sounds normal. No peritoneal signs. Musculoskeletal: No pedal edema, no cyanosis. Skin: Right gluteal cleft with bandage in place Hem/Lymphatic: No palpable cervical or supraclavicular nodes. No lymphangitis Psych: Mood ok. Affect normal Neurological: Awake, alert, oriented. No gross abnormality - Constitutional Vitals: Vital Signs Temp Pulse Resp BP Pulse Ox 98.4 F 80 18 114/72 92 06/26/20 11:28 06/26/20 11:28 06/26/20 11:28 06/26/20 11:28 06/26/20 11:28 Temperature -Last 24 Hours Temperature 98.4 F Temperature 98.3 F Temperature 98.0 F Temperature 99.8 F Temperature 99.1 F Temperature 100.6 F - Labs CBC & Chem 7: 06/26/20 06:25 06/26/20 06:25 Labs: Abnormal lab results 06/25/20 06/25/20 06/26/20 Range/Units 16:35 20:30 06:25 WBC 14.1 H (4.5-11.0) K/mm3 Hgb 16.2 H (11.8-15.2) gm/dl Hct 49.3 H (35.5-45.6) % MCV 99 H (84-94) fl MCH 33 H (28-32) pg Sodium (137-145) mmol/L Glucose (75-100) mg/dL POC Glucose 294 H 260 H (70-105) mg/dL 06/26/20 06/26/20 Range/Units 06:25 11:26 WBC (4.5-11.0) K/mm3 Hgb (11.8-15.2) gm/dl Hct (35.5-45.6) % MCV (84-94) fl MCH (28-32) pg Sodium 135 L (137-145) mmol/L Glucose 249 H (75-100) mg/dL POC Glucose 336 H (70-105) mg/dL
--- NOTE | 2020-06-26 13:34 | Discharge Summary ---
Providers - Providers Date of Admission: 06/25/20 10:47 Attending physician: GILBERTO CHACON MD 06/25/20 06:48 Consult to Wound/ET Nurse [CONS] Routine Reason For Exam: wound eval 06/25/20 08:23 Consult to Physician [CONS] Routine Comment: Consulting Provider: IBIS GA Physician Instructions: Reason For Exam: sepsis -cellulitis 06/25/20 08:25 Consult to Physician [CONS] Routine Comment: Consulting Provider: OSKAR VAN Physician Instructions: Reason For Exam: gluteal abscess Primary care physician: ZANE EMERSON Hospitalization Reason for admission: Gluteal abscess Condition: Stable Hospital course: 40 YO Male with DM, Nicotine Dependence, Plaque Psoriasis currently taking Cimzia injections presents to ED for evaluations. Pt reports "I felt like I was going to faint". Pt states that he has experienced weakness, dizziness, and felt like he was going to pass out. Patient acknowledges subjective fever, and decreased oral intake. EMS was notified and upon arrival the patient was found to be in distress and subsequently transported to [facility] for further care and evaluation of the aforementioned symptoms. The patient was seen and evaluated in the emergency department. All lab and imaging studies reviewed. Patient found to have sepsis suspected secondary to buttock cellulitis with probable abscess, left axillary cellulitis, acidosis. Patient admitted to medical floor and initiated on sepsis protocol. CT scan abdomen and pelvis is ordered and is pending at time of admission. Patient denies chills, chest pain, palpitations, productive cough, recent ill contacts, or known exposure to COVID-19. No prior admission for review. All medication listed at time of admission has been reconciled. CT abdomen and pelvis reviewed shows cellulitis with abscess of 3 cm to the right gluteal cleft without involvement of the anus. Sepsis secondary to gluteal abscess Diabetes mellitus Plaque psoriasis Gluteal cellulitis right Hyponatremia now resolved Worsening leukocytosis in the setting of sepsis Plan 06/26: Blood sugar remains poorly controlled will adjust insulin therapy at this time. Discussed with surgeon shortly after my initial note wound changes done and packing per surgeon looks good. Will discharge on Bactrim per surgeon's recommendation will follow cultures in the office. I discussed with the patient the need to better control his blood sugar he verbalized understanding we will increase his Metformin to 1000 mg twice a day he is to follow-up with his primary care physician for lab work to ensure renal improvement. Continue Accu- Cheks. Per surgeon the patient's will help do the packings. Continue supportive care with sepsis protocol Disposition: [id number] TO HOME OR SELFCARE Final Discharge Diagnosis (Prints w/discharge instructions): Sepsis secondary to gluteal abscess Time spent for discharge: 35 mins Core Measure Documentation - Palliative Care Palliative Care/ Comfort Measures: Not Applicable - Core Measures Any of the following diagnoses?: none Exam - Physical Exam Narrative exam: VITAL SIGNS: Reviewed. GENERAL: The patient appears normally developed, Vital signs as documented. HEAD: No signs of head trauma. EYES: Pupils are equal. Extraocular motions intact. EARS: Hearing grossly intact. MOUTH: Oropharynx is normal. NECK: No adenopathy, no JVD. CHEST: Chest with clear breath sounds bilaterally. No wheezes, rales, or rhonchi. CARDIAC: Regular rate and rhythm. S1 and S2, without murmurs, gallops, or rubs. VASCULAR: No Edema. Peripheral pulses normal and equal in all extremities. ABDOMEN: Soft, non tender and non distended. No rebound or guarding, and no masses palpated. Bowel Sounds normal. MUSCULOSKELETAL: Good range of motion of all major joints. Extremities without clubbing, cyanosis or edema. NEUROLOGIC EXAM: Alert and oriented x 3 No focal sensory or strength deficits. Speech normal. Follows commands. PSYCHIATRIC: Mood normal. SKIN: . Dressing over gluteal site. Detail exam as documented in skin assessment - Constitutional Vitals: Temp Pulse Resp BP Pulse Ox 98.4 F 80 18 114/72 92 06/26/20 11:28 06/26/20 11:28 06/26/20 11:28 06/26/20 11:28 06/26/20 11:28 Plan Activity: advance as tolerated, fall precautions Diet: diabetic Wound: per your surgeon's advice, per wound nurse instructions Special Instructions: record daily weights, record daily BP diary, record blood sugar diary Follow up with: ZANE EMERSON MD [Primary Care Provider] - 3-5 Days OSKAR VAN DO [Staff Physician] - 7 Days Prescriptions: Sulfamethoxazole/Trimethoprim [Bactrim 400-80 mg Tablet] 1 each PO BID #14 tablet metFORMIN [Glucophage] 1,000 mg PO BID #60 HYDROcodone/APAP 5-325 [Douglass 5-325 mg TAB] 1 each PO Q6HR PRN #10 tablet PRN Reason: PAIN
--- NOTE | 2020-06-26 13:58 | Progress Note ---
Assessment and Plan 40-year-old male status post incision and drainage of right gluteal abscess, POD 1 1. sepsis 2/2 #2 2. R gluteal abscess 3. left axillary abscess - spontaneously draining 4. Diabetes - Hb A1C 9.5 Pt stable. WBC trending down. Wound much improved. Plan: 1. Consistent carbohydrate diet 2. Strict glucose control 3. wound cultures pending 4. may transition to oral abx - bactrim x 10 days 5. As needed pain control 6. Daily dressing changes to left axilla. Daily hibiclens showers - solution provided to patient 7. Patient may be discharged from surgery standpoint. Wound care/packing instructions reviewed with him for gluteal wound. He states his is able to do this for him. He was given supplies for home. Pt to follow up in surgery clinic in 1 wk. D/W Dr. Freeman Thank you, please call with any questions or concerns. Evaluation and treatment of this patient was during the time of the national and state emergency arising from COVID19 coronavirus pandemic. Treatment and procedures performed meet the current and available best practice and guidelines for patient during the COVID pandemic. Subjective Date of service: 06/26/20 Narrative: Patient seen and examined. He states he feels much better. No fevers or chills. Pain is minimal. Objective Vital Signs - 12hr 06/26/20 06/26/20 06/26/20 03:37 10:00 11:28 Temperature 98.3 F 98.4 F Pulse Rate 78 74 80 Respiratory 16 18 Rate Blood Pressure 130/87 114/72 O2 Sat by Pulse 96 95 92 Oximetry - General physical appearance Narrative Exam: Gen.: Awake, alert, oriented 3. No apparent distress Gluteal: Right gluteal dressing removed. There was serosanguineous drainage on the dressing. 1 piece of Mesalt packing removed from wound. The wound is clean without odor or drainage. The periwound skin is no longer erythematous and induration is significantly improved. The wound was packed with 1 piece of Mesalt rope. This was covered with a 4 x 4 gauze and secured with mesh underwear. - Labs 06/26/20 06:25 06/26/20 06:25 Diabetes panel 06/26/20 Range/Units 06:25 Sodium 135 L (137-145) mmol/L Potassium 4.4 (3.6-5.0) mmol/L Chloride 99.5 (98-107) mmol/L Carbon Dioxide 28 (22-30) mmol/L BUN 11 (9-20) mg/dL Creatinine 1.0 (0.8-1.3) mg/dL Glucose 249 H (75-100) mg/dL Calcium 8.9 (8.4-10.2) mg/dL Calcium panel 06/26/20 Range/Units 06:25 Calcium 8.9 (8.4-10.2) mg/dL Pituitary panel 06/26/20 Range/Units 06:25 Sodium 135 L (137-145) mmol/L Potassium 4.4 (3.6-5.0) mmol/L Chloride 99.5 (98-107) mmol/L Carbon Dioxide 28 (22-30) mmol/L BUN 11 (9-20) mg/dL Creatinine 1.0 (0.8-1.3) mg/dL Glucose 249 H (75-100) mg/dL Calcium 8.9 (8.4-10.2) mg/dL Adrenal panel 06/26/20 Range/Units 06:25 Sodium 135 L (137-145) mmol/L Potassium 4.4 (3.6-5.0) mmol/L Chloride 99.5 (98-107) mmol/L Carbon Dioxide 28 (22-30) mmol/L BUN 11 (9-20) mg/dL Creatinine 1.0 (0.8-1.3) mg/dL Glucose 249 H (75-100) mg/dL Calcium 8.9 (8.4-10.2) mg/dL
[2020-06-26] MEDS ORDERED: INSULIN GLARGINE 100 UNITS/ML SUB-Q SCH (22:00)
== END 2020-06-26 15:00 | disposition home or self-care (01) | DRG 854 ==
LOC: ED 15:58 → 4A 19:38 → OBSVTOIN 06-25 10:47
PROVIDERS: ADMIT Internal Medicine; ATTEND Internal Medicine
PROC: 0J990ZZ Drainage of Buttock Subcutaneous Tissue and Fascia, Open Approach (ICD-10-PCS; principal; 2020-06-25)
DX: A41.9 Sepsis, unspecified organism (principal); E87.1 Hypo-osmolality and hyponatremia; L03.112 Cellulitis of left axilla; L03.317 Cellulitis of buttock; L02.31 Cutaneous abscess of buttock; L02.412 Cutaneous abscess of left axilla; Z88.0 Allergy status to penicillin; F17.200 Nicotine dependence, unspecified, uncomplicated; E11.9 Type 2 diabetes mellitus without complications; Z82.49 Family history of ischemic heart disease and other diseases of the circulatory system; Z83.3 Family history of diabetes mellitus; L40.0 Psoriasis vulgaris
CPT/HCPCS: 36415; 71045; 74177; 80048; 80053; 81001; 82140; 82962; 83036; 83735; 85007; 85025; 85027; 85610; 85730; 87040; 87116; G0378; J1170; J1815; J2405; J3370; J7030; J7040; J7050; Q9967